=== PATIENT | female | born 1965 | race Two or more races ===

== ENCOUNTER 2024-11-02 09:01 | Outpatient (AMB) | payer OTHER, SELFPAY ==
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
[2024-11-02 09:19] VITALS: BMI 33.9
== END 2024-11-02 09:34 | disposition home or self-care (01) ==
PROVIDERS: PCP Physician Assistant; Visit Provider Orthopaedic Surgery
DX: M25.512 Pain in left shoulder (principal)
CPT/HCPCS: 99213; G2211

== ENCOUNTER 2024-11-02 14:53 | Outpatient (REF) | payer OTHER, SELFPAY ==
--- NOTE | ~2024-11-02 | XR_ITS ---
EXAMINATION: XR LEFT SHOULDER CLINICAL INFORMATION: Pain in left shoulder M25.512. COMPARISON: None available TECHNIQUE: AP and scapular Y views of the left shoulder. FINDINGS: Postsurgical changes with rotator cuff repair anchors positioned within the humeral head. The more posterior and superior screw projects beyond the cortex of the superolateral humeral head. Correlate with the surgical result. Mild acromioclavicular and glenohumeral osteoarthritis. XR/XR shoulder LT min 2V IMPRESSION: 1. Mild acromioclavicular and glenohumeral osteoarthritis. 2. Postsurgical changes with the more posterior and superior screw projecting beyond the cortex of the superolateral humeral head. Electronically signed by: Óscar Bonner MD 12/09/2024 10:23 AM TAMI IBARRA
== END 2024-11-02 14:54 | disposition home or self-care (01) ==
LOC: HO.HOSX 14:53
PROVIDERS: Visit Provider Orthopaedic Surgery
DX: M25.512 Pain in left shoulder (principal)
CPT/HCPCS: 73030

== ENCOUNTER 2024-11-22 07:23 | Outpatient (REF) | payer OTHER, SELFPAY ==
--- NOTE | ~2024-11-22 | CT_ITS ---
CLINICAL HISTORY: M25.512 - Pain in left shoulder Examination: Noncontrast CT, left shoulder Indication: Pain. Comparison: Radiographs 11/02/2024 Findings: Postsurgical changes noted along the left humeral head. The cephalad most screw is not flush with the humeral head and protrudes approximately 6 mm. No immediate postsurgical CT is present. No fracture or acute malalignment. Mild joint space narrowing at the glenohumeral and acromioclavicular joints. No fluid collection or suspicious soft tissue abnormality. The visualized left lung is clear. Impression: One of the surgical anchors is noted to protrude approximately 6 mm from the humeral head surface with mild surrounding lucency. Correlation for loosening and/or partial withdrawal. This document has been electronically signed by: Vincent Brink MD on 11/22/2024 11:47:34
== END 2024-11-22 07:24 | disposition home or self-care (01) ==
LOC: HO.CT 07:23
PROVIDERS: PCP Physician Assistant; Visit Provider Orthopaedic Surgery
DX: M25.512 Pain in left shoulder (principal)
CPT/HCPCS: 73200

== ENCOUNTER → 2024-11-22 07:24 | Outpatient (BNV) | payer OTHER, SELFPAY | PROVIDERS: PCP Physician Assistant; Visit Provider Radiology Vascular & Interventional Radiology | DX: T84.84XA Pain due to internal orthopedic prosthetic devices, implants and grafts, initial encounter (principal) | CPT/HCPCS: 73200 ==

== ENCOUNTER 2024-12-20 13:03 | Outpatient (AMB) | payer OTHER, SELFPAY ==
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
[2024-12-20 13:08] VITALS: BMI 33.9
--- OUTSIDE RECORDS SUMMARY | 2024-12-20 17:41 | XMS_ITS | Encounter Summary ---
Author Organization [facility] Address [address] [place] [address] Care Team Providers Care Windows Systems Engineer Name Role Phone Shital Beck Primary Care Provider + Reason for Visit * Reason Onset Date Comments Med Refill 11/03/2024 [email or web address] Encounter Details Date Type Department Care Team (Late st Contact Info) Description 11/03/2024 Telephone Bariatric Surgery - [place] [address] [facility] [address] [place] [phone] Mark Schroeder MD [address] [facility] [address] [place] [address] Med Refill (wegovy) Social History Tobacco Use Types Packs/Day Years Used Date Smoking Tobacco: Never Smokeless Tobacco: Never Alcohol Use Standard Drinks/Week Comments No 0 (1 standard drink = 0.6 oz pur e alcohol) Sex and Gender Information Value Date Recorded Sex Assigned at Female 12/08/2024 9:05 AM EST Gender Identity Female 12/08/2024 9:05 AM EST Sexual Orientation Straight 12/08/2024 9: 05 AM EST Job Start Date Occupation Industry Not on file Not on file Not on file documented as of this encounter Progress Notes * Elsy Sultana - 11/03/2024 11:57 AM EST Patient did well on Wegovy 1 mgs and would like a refill with titration. If appropriate, please send script for Wegovy 1.7 mgs to their pharmacy. The patient does have a follow up in 12/28/2024 documented in this encounter Plan of Treatment Upcoming Encounters Date Type Department Care Team (Late st Contact Info) Description 12/28/2024 1:00 PM EST Office Visit Bariatric Surgery - [place] [address] [facility] [address] [place] [address] Mark Schroeder MD 175 [facility] [address] [place] [address] 06/10/2025 9:00 AM EDT Office Visit Internal Medicine - [place] 175 [facility] [address] [place] [phone] Shital Beck PA 175 [facility] [address] [place] [address] documented as of this encounter Visit Diagnoses Not on filedocumented in this encounter Care Teams Windows Systems Engineer Relationship Specialty Start Date End Date Shital Beck PA [address] [facility] [address] [place] [address] PCP - General Primary Care 10/01/24 documented as of this encounter
--- OUTSIDE RECORDS SUMMARY | 2024-12-20 17:41 | XMS_ITS | Encounter Summary ---
Author Organization [facility] Address [address] [place] [address] Care Team Providers Care Pararescue Manager Name Role Phone Shital Beck Primary Care Provider + Reason for Visit * Reason Comments Cough Body aches, LNI posit harris covid Encounter Details Date Type Department Care Team (Late st Contact Info) Description 11/27/2024 11:30 AM EST Office Visit [facility] - [place] [address] [place] [phone] Natanael Henry PA [address] [place], [place] [phone] COVID (Primary Dx) Social History Tobacco Use Types Packs/Day Years [...] on file documented as of this encounter Last Filed Vital Signs Vital Sign Reading Time Taken Comments Blood Pressure 118/70 11/27/2024 11:24 AM EST Pulse 88 11/27/2024 11:24 AM EST Temperature 36.7 ??C (98.1 ??F) 11/27/2024 11:[address] Respiratory Rate - - Oxygen Saturation 99% 11/27/2024 11:24 AM EST Inhaled Oxygen Concentration - - Weight - - Height - - Body Mass Index - - documented in this encounter Ordered Prescriptions Prescription Sig Dispensed Refills Start Date End Da te benzonatate (TESSALON) 100 mg capsuleIndications:CO VID Take 1 capsule (100 mg total) by mouth 3 (three) times a day if needed for cough for up to 7 days. Do not crush or chew. 21 capsule 11/27/2024 12/04/2024 nirmatrelvir-ritonavi r (Paxlovid) 300 mg (150 mg x 2)-100 mg tablet therapy packIndications:COVID Take 3 tablets by mouth every 12 (twelve) hours for 5 days. Take number of ordered nirmatrelvir (300 mg = 2 tablets) and ritonavir (100 mg = 1 tablet) tablets at the same time. 30 tablet 11/27/2024 12/02/2024 documented in this encounter Progress Notes * CHERELLE Terrell - 11/27/2024 11:30 AM EST CHIEF COMPLAINT: Cough (Body aches, LIN positive covid) had concerns including Cough (Body aches, LIN positive covid). IDENTIFIER: Sol Anand is a 59 y.o. old female. [facility] HPI: Sol Anand presents to urgent care for evaluation of COVID-19 positive home test. Patient feeling unwell for a few days. Body aches, headache.. PHYSICAL EXAM: Vitals: 11/27/24 1124 BP: 118/70 Pulse: 88 Temp: 36.7 ??C (98.1 ??F) SpO2: 99% APPEARANCE: Alert and in no acute distress HEENT: EOMs full and intact, PERRLA, conjunctivae and sclerae normal, nasal exam showed no discharge, swelling or lesions noted, hearing was normal bilaterally to whispered voice, clear aduitory canals, tympanic membranes pearly with no bulging, teeth intact, non-carious and tongue midline and normal. Oropharynx, pink, moist. Tonsils not enlarged with no exudate NECK:Neck supple, no adenopathy, thyroid symmetric and of normal size CARDIOVASCULAR:regular rate and rhythm without murmurs PULMONARY:unlabored respirations, no intercostal retractions or accessory muscle use and clear to auscultation without rales or wheezes Some No images are attached to the encounter. ROS: Review of Systems Constitutional: Positive for fatigue. HENT: Positive for congestion. Neurological: Positive for headaches. PROBLEMS: Sol was seen today for cough. Diagnoses and all orders for this visit: 1. COVID - Paxlovid; Take 3 tablets by mouth every 12 (twelve) hours for 5 days. Take number of ordered nirmatrelvir (300 mg = 2 tablets) and ritonavir (100 mg = 1 tablet) tablets at the same time. - benzonatate; Take 1 capsule (100 mg total) by mouth 3 (three) times a day if needed for cough forup to 7 days. Do not crush or chew. Will place on Paxlovid. Patient instructed how to take the medication. Also Tessalon Perles as needed for cough symptoms. Patient aware of general guidelines for isolation and CDC guidelines regarding COVID No orders of the defined types were placed in this encounter. PAST MEDICAL HISTORY: Patient Active Problem List Diagnosis Date Noted DM type 2 (diabetes mellitus, type 2) ([facility]) 09/03/2024 Rheumatoid factor positive 09/03/2024 Class 1 obesity due to excess calories with body mass index (BMI) of 33.0 to 33.9 in adult 09/03/2024 Rheumatoid arthritis ([facility]) 04/22/2023 Undifferentiated inflammatory arthritis ([facility]) 09/07/2020 Over weight 10/18/2019 Left knee pain 07/29/2019 Intestinal malabsorption following gastrectomy 04/08/2019 Varicose veins with pain 12/28/2018 Allergic rhinitis 08/13/2018 Asthma 08/13/2018 Hypertension 07/24/2018 Hyperlipidemia 04/24/2018 Vitamin D deficiency 04/24/2018 Gastroesophageal reflux disease 06/16/2017 Obstructive sleep apnea 04/08/2017 Depression 02/06/2015 Irritable bowel syndrome 10/04/2014 Carpal tunnel syndrome 10/05/2013 Cervical radiculopathy 03/26/2013 Anxiety 06/19/2011 Past Surgical History: Procedure Laterality Date APPENDECTOMY 2001 PROCEDURE: HISTORICAL APPENDECTOMY BARIATRIC SURGERY 12/2018 PROCEDURE: IL LAPS GSTRC RSTRICTIV PX LONGITUDINAL GASTRECTOMY BREAST LUMPECTOMY PROCEDURE: ---- BREAST LUMP BIOPSY ----; COMMENT: cyst removed SECTION PROCEDURE: IL DELIVERY ONLY; COMMENT: times 4 HERNIA REPAIR 2001 PROCEDURE: HISTORICAL HERNIA REPAIR/ING HYSTERECTOMY 2003 PROCEDURE: HISTORICAL HYSTERECTOMY; COMMENT: Supracervical, needs paps LEG SURGERY Left 11/22/2015 PROCEDURE: HISTORICAL LEG SURGERY; COMMENT: varicose vein ablation/microphlebectomies OTHER SURGICAL HISTORY PROCEDURE: IL LIG/TRNSXJ FLP TUBE ABDL/VAG APPR UNI/BI OTHER SURGICAL HISTORY 12/25/2018 PROCEDURE: HISTORY OTHER; COMMENT: gastrectomy SHOULDER ARTHROSCOPY Left 2013 PROCEDURE: IL SURGICAL ARTHROSCOPY SHOULDER W/LSS&RESCJ ADS SOCIAL HISTORY: Social History Tobacco Use Smoking status: Never Smokeless tobacco: Never Substance Use Topics Alcohol use: No FAMILY HISTORY: Family History Problem Relation Name Age of Onset Hypertension Mother Diabetes Mother Dementia Mother Other (Other: Other, old age) Father 99.00 No Known Problems Daughter MEDICATIONS DISCONTINUED/REORDERED: There are no discontinued medications. ACTIVE MEDICATIONS: No outpatient medications have been marked as taking for the 11/27/24 encounter (Office Visit) with CHERELLE Terrell. ALLERGIES: Allergies Allergen Reactions Lisinopril Other reaction(s): Cough The details of the visit were reviewed with the patient. Pertinent history, and objective findings were reviewed, along with the diagnoses: Sol Anand acknowledges understanding of the above plan and agrees to follow recommendations and/or take medications as prescribed. This visit was performed at an urgent care facility. The patient should follow up with their PCP orthe relevant specialist(s) CHERELLE Terrell documented in this encounter Plan of Treatment Upcoming Encounters Date Type Department Care Team (Late st Contact Info) Description 12/28/2024 1:00 PM EST Office Visit Bariatric Surgery - [place] 175 [facility] [address] [place] [phone] Mark Schroeder MD 175 [facility] [address] [place] [address] 06/10/2025 9:00 AM EDT Office Visit Internal Medicine - [place] 175 [facility] [address] [place] [phone] Shital Beck PA [address] [address] documented as of this encounter Visit Diagnoses Diagnosis COVID- Primary documented in this encounter Care Teams Pararescue Manager Relationship Specialty Start Date End Date Shital Beck PA [address] [address] PCP - General Primary Care 10/01/24 documented as of this encounter
--- OUTSIDE RECORDS SUMMARY | 2024-12-20 17:41 | XMS_ITS | Encounter Summary ---
Author Organization [facility] Address [address] [place] [address] Care Team Providers Care Recreational Director Name Role Phone Shital Beck Primary Care Provider + Reason for Visit * Reason Comments Abdominal Pain PT COMES IN WITH ABD PAIN, NAUSEA, VOMITING, HEADACHE SINCE LAST NIGHT. Encounter Details Date Type Department Care Team (Late st Contact Info) Description 12/08/2024 10:11 AM EST - 12/08/2024 1:13 PM EST Emergency [facility] Emergency [address] [place] [id number] Epigastric pain (Primary Dx); Nausea and vomiting, unspecified vomiting type Discharge Disposition: Home or Self Care Social History Tobacco Use Types Packs/Day Years [...] Sign Reading Time Taken Comments Blood Pressure 122/62 12/08/2024 1:04 PM EST Pulse 85 12/08/2024 1:04 PM EST Temperature 37 ??C (98.6 ??F) 12/08/2024 7:10 AM EST Respiratory Rate 16 12/08/2024 1:04 PM EST Oxygen Saturation 100% 12/08/2024 1:04 PM EST Inhaled Oxygen Concentration - - Weight 77.1 kg (170 lb) 12/08/2024 7:10 AM EST Height 149.9 cm (4' 11 ) 12/08/2024 7:10 AM EST Body Mass Index 34.34 12/08/2024 7:10 AM EST documented in this encounter Discharge Instructions * Attachments The following attachments cannot be sent through Care Everywhere. * Nausea and Vomiting (Kiswahili) documented in this encounter Medications at Time of Discharge Medication Sig Dispensed Refills Start Date End Date famotidine (PEPCID) 20 mg tablet Take 1 tablet (20 mg total) by mouth 2 (two) times a day for 15 days. 30 tablet 12/08/2024 12/23/2024 adalimumab (HUMIRA PEN SUBQ) Inject 40 mg into the skin every 14 days. albuterol 2.5 mg /3 mL (0.083 %) nebulizer solution Take 1 Vial by nebulization every 6 hours as needed for Wheezing for up to 180 days. 09/22/2023 albuterol HFA (PROAIR HFA ; PROVENTIL HFA ; VENTOLIN HFA) 90 mcg/actuation inhaler Inhale 2 Puffs into the lungs 4 times daily as needed for Cough or Wheezing. 01/23/2021 amitriptyline (ELAVIL) 50 mg tabletIndications:Heada nasreen, unspecified TAKE 1 TABLET BY MOUTH EVERYDAY AT BEDTIME 90 tablet 3 11/02/2024 blood sugar diagnostic (FreeStyle Lite Strips) test strip USE TO CHECK BLOOD SUGARS 2-3 TIMES DAILY. E11.9 10/07/2023 blood-glucose meter misc Use to test blood sugars 2-3 times daily. DX E11.9 08/06/2024 cetirizine (ZyrTEC) 10 mg tablet Take 1 Tablet by mouth daily as needed for Allergies. 12/08/2023 cholecalciferol (VITAMIN D-3) 50 mcg (2,000 unit) capsule Take 1 capsule (2,000 Units total) by mouth 1 (one) time each day. 03/13/2022 diclofenac (VOLTAREN) 1 % topical gel APPLY 4 G TOPICALLY 4 TIMES DAILY NEEDED (RIGHT KNEE PAIN). 12/02/2022 ergocalciferol (VITAMIN D-2) 1,250 mcg (50,000 unit) capsule Take 1 Capsule by mouth once a week for 8 doses. 01/28/2023 fluticasone propionate (FLONASE) 50 mcg/actuation nasal spray Administer 2 sprays into each nostril 1 (one) time each day. 03/11/2024 folic acid (FOLVITE) 1 mg tablet Take 1 tablet (1,000 mcg total) by mouth 1 (one) time each day. hydroxychloroquine (PLAQUENIL) 200 mg tablet Take 1 tablet (200 mg total) by mouth 2 (two) times a day. 08/02/2021 ibuprofen (ADVIL,MOTRIN) 800 mg tablet Take 1 tablet (800 mg total) by mouth every 8 (eight) hours if needed. 12/02/2022 magnesium 250 mg tablet TAKE 1 TABLET BY MOUTH EVERY DAY 12/13/2023 methotrexate 2.5 mg tablet Take 7 Tablets by mouth once a week. 10/22/2022 methotrexate, PF, 17.5 mg/0.35 mL auto-injector Inject 17.5 mg into the skin once a week. 04/22/2023 multivitamin with minerals tablet TAKE 1 TABLET BY MOUTH EVERY DAY 11/13/2023 omeprazole OTC (PriLOSEC OTC) 20 mg EC tablet Take 1 tablet (20 mg total) by mouth 1 (one) time each day. 02/03/2024 topiramate (TOPAMAX) 100 mg tablet Take 1 tablet (100 mg total) by mouth 1 (one) time each day. 02/03/2024 ondansetron ODT (ZOFRAN-ODT) 4 mg disintegrating tablet Let 1 tablet dissolve under the tongue three times daily as needed for nausea or vomiting. 10 tablet 12/08/2024 12/10/2024 documented as of this encounter Ordered Prescriptions Prescription Sig Dispensed Refills Start Date End Da te famotidine (PEPCID) 20 mg tablet Take 1 tablet (20 mg total) by mouth 2 (two) times a day for 15 days. 30 tablet 12/08/2024 12/23/2024 ondansetron ODT (ZOFRAN-ODT) 4 mg disintegrating tablet Let 1 tablet dissolve under the tongue three times daily as needed for nausea or vomiting. 10 tablet 12/08/2024 12/10/2024 famotidine (PEPCID) 20 mg tablet Take 1 tablet (20 mg total) by mouth 2 (two) times a day for 15 days. 30 tablet 12/08/2024 12/08/2024 ondansetron ODT (ZOFRAN-ODT) 4 mg disintegrating tablet Let 1 tablet dissolve under the tongue three times daily as needed for nausea or vomiting. 10 tablet 12/08/2024 12/08/2024 documented in this encounter Discharge Disposition Disposition Code Departure Means Destination Comment s Home or Self Care documented in this encounter Progress Notes * Orlin Love MD - 12/08/2024 8:48 AM EST Patient is presenting with epigastric abdominal pain for 1 day, nausea vomiting times as well. No diarrhea, feels a headache Patient will require further workup in the emergency department. I have spoken with the patient and explained that we strive to provide safe and effective care in the emergency department. During their visit they may experience extended wait times. I have discussed that out of concern for their safety, if the patient needs to leave for any reason to please let staff know immediately. * Georgia Mcdaniel RN - 12/08/2024 7:16 AM EST Pt also reports burning in the chest after vomiting. EKG ordered * CHERELLE Ceballos - 12/08/2024 7:07 AM EST Emergency Medicine Note Patient Name: Sol Anand Initial Evaluation: 12/08/2024 : 1965 Patient's PCP: CHERELLE Taveras Emergency Physician: CHERELLE Donnelly History of Present Illness Chief Complaint: Chief Complaint Patient presents with ??? Abdominal Pain PT COMES IN WITH ABD PAIN, NAUSEA, VOMITING, HEADACHE SINCE LAST NIGHT. HPI: 59-year-old female here today with upper abdominal pain and epigastric discomfort. States he is nauseous vomiting started at 5:00 last night. Denies any fevers or any chills. Gradual onset of symptoms. Denies any chest pain or respiratory distress. ROS: I have performed a ROS with the pertinent positives and negatives documented in the history ofpresent illness. Previous History Past Medical History: Diagnosis Date ??? Allergic rhinitis 08/13/2018 DX:Allergic rhinitis ??? Anxiety 06/19/2011 DX:Anxiety ??? Asthma 08/13/2018 DX:Asthma ??? Carpal tunnel syndrome 10/05/2013 DX:Carpal tunnel syndrome ??? Cervical radiculopathy 03/26/2013 DX:Cervical radiculopathy ??? Depression 02/06/2015 DX:Depression ??? DM type 2 (diabetes mellitus, type 2) ([facility]) DX:DM type 2 (diabetes mellitus, type 2) ([facility]); COMMENT: 12/2018 No diabetes medication since bariatric surgery ??? Gastroesophageal reflux disease 06/16/2017 DX:Gastroesophageal reflux disease; COMMENT: 2011 h/o H.Pylori ??? History of bariatric surgery 01/14/2019 DX:History of bariatric surgery; COMMENT: 12/2018 lap vertical sleeve ??? Hyperlipidemia 04/24/2018 DX:Hyperlipidemia ??? Hypertension 07/24/2018 DX:Hypertension ??? Irritable bowel syndrome 10/04/2014 DX:Irritable bowel syndrome ??? Morbid obesity with BMI of 40.0-44.9, adult ([facility]) 10/04/2014 DX:Morbid obesity with BMI of 40.0-44.9, adult ([facility]); COMMENT: 12/2018 post sleeve gastrectomy ??? Obstructive sleep apnea 04/08/2017 DX:Obstructive sleep apnea ??? Rheumatoid arthritis ([facility]) DX:Rheumatoid arthritis ([facility]) ??? Rheumatoid factor positive DX:Rheumatoid factor positive; COMMENT: Rh factor = 1160 on 07/19/20 ??? 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 Vitamin D deficiency 04/24/2018 DX:Vitamin D deficiency Past Surgical History: Procedure Laterality Date ??? APPENDECTOMY 2001 PROCEDURE: HISTORICAL APPENDECTOMY ??? BARIATRIC SURGERY 12/2018 PROCEDURE: CO LAPS GSTRC RSTRICTIV PX LONGITUDINAL GASTRECTOMY ??? BREAST LUMPECTOMY PROCEDURE: ---- BREAST LUMP BIOPSY ----; COMMENT: cyst removed ??? SECTION PROCEDURE: CO DELIVERY ONLY; COMMENT: times 4 ??? HERNIA REPAIR 2001 PROCEDURE: HISTORICAL HERNIA REPAIR/ING ??? HYSTERECTOMY 2003 PROCEDURE: HISTORICAL HYSTERECTOMY; COMMENT: Supracervical, needs paps ??? LEG SURGERY Left 11/22/2015 PROCEDURE: HISTORICAL LEG SURGERY; COMMENT: varicose vein ablation/microphlebectomies ??? OTHER SURGICAL HISTORY PROCEDURE: CO LIG/TRNSXJ FLP TUBE ABDL/VAG APPR UNI/BI ??? OTHER SURGICAL HISTORY 12/25/2018 PROCEDURE: HISTORY OTHER; COMMENT: gastrectomy ??? SHOULDER ARTHROSCOPY Left 2013 PROCEDURE: CO SURGICAL ARTHROSCOPY SHOULDER W/LSS&RESCJ ADS Social History Tobacco Use ??? Smoking status: Never ??? Smokeless tobacco: Never Substance Use Topics ??? Alcohol use: No ??? Drug use: No Family History Problem Relation Name Age of Onset ??? Hypertension Mother ??? Diabetes Mother ??? Dementia Mother ??? Other (Other: Other, old age) Father 99.00 ??? No Known Problems Daughter is allergic to lisinopril. No current facility-administered medications on file prior to encounter. Current Outpatient Medications on File Prior to Encounter Medication Sig Dispense Refill ??? adalimumab (HUMIRA PEN SUBQ) Inject 40 mg into the skin every 14 days. ??? albuterol 2.5 mg /3 mL (0.083 %) nebulizer solution Take 1 Vial by nebulization every 6 hours as needed for Wheezing for up to 180 days. ??? albuterol HFA (PROAIR HFA ; PROVENTIL HFA ; VENTOLIN HFA) 90 mcg/actuation inhaler Inhale 2 Puffs into the lungs 4 times daily as needed for Cough or Wheezing. ??? amitriptyline (ELAVIL) 50 mg tablet TAKE 1 TABLET BY MOUTH EVERYDAY AT BEDTIME 90 tablet 3 ??? [] benzonatate (TESSALON) 100 mg capsule Take 1 capsule (100 mg total) by mouth 3 (three) times a day if needed for cough for up to 7 days. Do not crush or chew. 21 capsule 0 ??? blood sugar diagnostic (FreeStyle Lite Strips) test strip USE TO CHECK BLOOD SUGARS 2-3 TIMES DAILY. E11.9 ??? blood-glucose meter misc Use to test blood sugars 2-3 times daily. DX E11.9 ??? cetirizine (ZyrTEC) 10 mg tablet Take 1 Tablet by mouth daily as needed for Allergies. ??? cholecalciferol (VITAMIN D-3) 50 mcg (2,000 unit) capsule Take 1 capsule (2,000 Units total) bymouth 1 (one) time each day. ??? diclofenac (VOLTAREN) 1 % topical gel APPLY 4 G TOPICALLY 4 TIMES DAILY NEEDED (RIGHT KNEE PAIN). ??? ergocalciferol (VITAMIN D-2) 1,250 mcg (50,000 unit) capsule Take 1 Capsule by mouth once a week for 8 doses. ??? fluticasone propionate (FLONASE) 50 mcg/actuation nasal spray Administer 2 sprays into each nostril 1 (one) time each day. ??? folic acid (FOLVITE) 1 mg tablet Take 1 tablet (1,000 mcg total) by mouth 1 (one) time each day. ??? hydroxychloroquine (PLAQUENIL) 200 mg tablet Take 1 tablet (200 mg total) by mouth 2 (two) times a day. ??? ibuprofen (ADVIL,MOTRIN) 800 mg tablet Take 1 tablet (800 mg total) by mouth every 8 (eight) hours if needed. ??? magnesium 250 mg tablet TAKE 1 TABLET BY MOUTH EVERY DAY ??? methotrexate 2.5 mg tablet Take 7 Tablets by mouth once a week. ??? methotrexate, PF, 17.5 mg/0.35 mL auto-injector Inject 17.5 mg into the skin once a week. ??? multivitamin with minerals tablet TAKE 1 TABLET BY MOUTH EVERY DAY ??? [] nirmatrelvir-ritonavir (Paxlovid) 300 mg (150 mg x 2)-100 mg tablet therapy pack Take3 tablets by mouth every 12 (twelve) hours for 5 days. Take number of ordered nirmatrelvir (300 mg = 2 tablets) and ritonavir (100 mg = 1 tablet) tablets at the same time. 30 tablet 0 ??? omeprazole OTC (PriLOSEC OTC) 20 mg EC tablet Take 1 tablet (20 mg total) by mouth 1 (one) timeeach day. ??? [] semaglutide (Wegovy) 1.7 mg/0.75 mL injection pen Inject 1.7 mg under the skin every 7 (seven) days for 28 days. 3 mL 0 ??? topiramate (TOPAMAX) 100 mg tablet Take 1 tablet (100 mg total) by mouth 1 (one) time each day. Physical Exam ED Triage Vitals [12/08/24 0710] Temp Heart Rate Resp BP 37 ??C (98.6 ??F) 103 18 (!) 160/86 SpO2 Temp Source Heart Rate Source Patient Position 98 % Oral Radial Sitting BP Location FiO2 (%) Right arm -- Physical Exam Vitals and nursing note reviewed. Constitutional: Appearance: She is well-developed. HENT: Head: Normocephalic. Eyes: Extraocular Movements: Extraocular movements intact. Pupils: Pupils are equal, round, and reactive to light. Cardiovascular: Rate and Rhythm: Normal rate and regular rhythm. Pulmonary: Effort: Pulmonary effort is normal. Breath sounds: Normal breath sounds. Abdominal: General: Abdomen is flat. Palpations: Abdomen is soft. Tenderness: There is abdominal tenderness. Skin: General: Skin is warm. Capillary Refill: Capillary refill takes less than 2 seconds. Neurological: General: No focal deficit present. Mental Status: She is alert and oriented to person, place, and time. Psychiatric: Mood and Affect: Mood normal. Behavior: Behavior normal. Results Labs Reviewed COMPREHENSIVE METABOLIC PANEL - Abnormal Result Value Sodium 135 Potassium 4.4 Chloride 98 CO2 30 Anion Gap 7 Glucose 188 (*) BUN 9 Creatinine 0.69 eGFR 100 BUN/Creatinine Ratio 13.0 Calcium 9.9 AST (SGOT) 24 ALT (SGPT) 23 Alkaline Phosphatase 111 Total Protein 8.3 (*) Albumin 3.8 Total Bilirubin 0.4 LIPASE - Normal Lipase 28 CBC AND DIFFERENTIAL Narrative: The following orders were created for panel order CBC and differential. Procedure Abnormality Status --------- ------ CBC auto differential[[id number]] Final result Please view results for these tests on the individual orders. CBC WITH AUTO DIFFERENTIAL WBC 6.7 RBC 4.20 Hemoglobin 12.9 Hematocrit 37.9 MCV 90.2 MCH 30.7 MCHC 34.0 RDW 11.9 Platelets 355 MPV 9.5 NRBC 0.0 NRBC Absolute 0.00 Neutrophils Relative 62.9 Lymphocytes Relative 29.4 Monocytes Relative 6.4 Eosinophils Relative 0.9 Basophils Relative 0.3 Immature Granulocytes Relative 0.1 Neutrophils Absolute 4.19 Lymphocytes Absolute 1.96 Monocytes Absolute 0.43 Eosinophils Absolute 0.06 Basophils Absolute 0.02 Immature Granulocytes Absolute 0.01 Abnormal Labs Reviewed COMPREHENSIVE METABOLIC PANEL - Abnormal; Notable for the following components: Result Value Glucose 188 (*) Total Protein 8.3 (*) All other components within normal limits US Abdomen Limited Final Result Impression: 1. Cholelithiasis. No evidence of acute cholecystitis or biliary obstruction. 2. [place] ([id number]) -------- FINAL REPORT -------- Dictated By: Karla Moore Dictated Date: 12/08/2024 11:56 ET Assigned Physician: Karla Moore Reviewed and Electronically Signed By: Karla Moore Signed Date: 12/08/2024 11:58 ET Workstation ID: [id number] Transcribed By: Self Edit Transcribed Date: 12/08/2024 11:56 ET I have discussed the incidental/abnormal imaging and/or lab abnormalities with the patient and haveinstructed them the need for further evaluation and workup with their primary care doctor. I have provided the patient with a paper copy of the abnormality. The laboratory results, imaging results and other diagnostic exam results were reviewed in the EMR. EKG Interpretation Critical Care Time None Differential Diagnosis GERD Gastritis Pancreatitis Viral syndrome Nausea vomiting Medical Decision Making Patient well-appearing. She is not dehydrated mucous membranes are moist. Given Zofran 4 mg p.o. along with Maalox and viscous lidocaine. Patient's labs and ultrasound are unremarkable discharge home Medications aluminum-magnesium hydroxide-simethicone (MAALOX) 200-200-20 mg/5 mL suspension 30 mL (has no administration in time range) lidocaine (XYLOCAINE) 2 % mouth solution 15 mL (has no administration in time range) ondansetron ODT (ZOFRAN-ODT) disintegrating tablet 4 mg (4 mg oral Given 12/08/24 1159) Clinical Impressions as of 12/08/24 1309 Epigastric pain Nausea and vomiting, unspecified vomiting type Amount and/or Complexity of Data Reviewed External Data Reviewed: Encounters reviewed in Chart Review. Details: Labs: ordered. Decision-making details documented in ED Course. Radiology: ordered. Decision-making details documented in ED Course. ECG/medicine tests: ordered. Decision-making details documented in ED Course. Procedures Procedures Diagnosis 1. Epigastric pain 2. Nausea and vomiting, unspecified vomiting type Disposition Discharge ED Prescriptions Medication Sig Dispense Start Date End Date Auth. Provider ondansetron ODT (ZOFRAN-ODT) 4 mg disintegrating tablet Let 1 tablet dissolve under the tongue three times daily as needed for nausea or vomiting. 10 tablet 12/08/2024 12/15/2024 CHERELLE Ceballos famotidine (PEPCID) 20 mg tablet Take 1 tablet (20 mg total) by mouth 2 (two) times a day for 15 days. 30 tablet 12/08/2024 12/23/2024 CHERELLE Ceballos Physician Attestation CHERELLE Ceballos 12/08/24 1113 CHERELEL Ceballos 12/08/24 1307 CHERELLE Ceballos 12/08/24 1357 CHERELLE Ceballos 12/12/24 0736 documented in this encounter Plan of Treatment Upcoming Encounters Date Type Department Care Team (Late st Contact Info) Description 12/28/2024 1:00 PM EST Office Visit Bariatric Surgery - [place] [address] [facility] [address] [place] [phone] Mark Schroeder MD [address] [facility] [address] [place] [address] 06/10/2025 9:00 AM EDT Office Visit Internal Medicine - [facility] [address] [facility] [address] [place] [phone] Shital Beck PA [address] [facility] [address] [place] [address] documented as of this encounter Procedures Procedure Name Priority Date/Time Associated Diagnosis Comments US ABDOMEN LIMITED STAT 12/08/2024 11 :52 AM EST ECG 12-LEAD STAT 12/08/2024 7:32 AM EST CBC WITH AUTO DIFFERENTIAL STAT 12/08/2024 7:27 AM EST CBC AND DIFFERENTIAL STAT 12/08/2024 7:27 AM EST LIPASE STAT 12/08/2024 7:27 AM EST COMPREHENSIVE METABOLIC PANEL STAT 12/08/2024 7:27 AM EST ECG ANNOTATED 12/08/2024 documented in this encounter Results * US Abdomen Limited (12/08/2024 11:52 AM EST) Anatomical Region Laterality Modality Body Ultrasound 12/08/2024 11:5 6 AM EST Impressions 12/08/2024 11:58 AM EST Impression: 1. Cholelithiasis. No evidence of acute cholecystitis or biliary obstruction. 2. Fatty liver. Telerylie VILLARREAL ([id number]) -------- FINAL REPORT -------- Dictated By: Karla Moore Dictated Date: 12/08/2024 11:56 ET Assigned Physician: Karla Moore Reviewed and Electronically Signed By: Karla Moore Signed Date: 12/08/2024 11:58 ET Workstation ID: [id number] Transcribed By: Self Edit Transcribed Date: 12/08/2024 11:56 ET Narrative 12/08/2024 11:58 AM EST History: Abdominal pain. Findings: Real-time imaging of the abdomen, limited to the right upper quadrant, was performed. The hepatic echogenicity is mildly increased, consistent with fatty infiltration. No masses are identified. The portal vein is patent and exhibits normal, hepatopedal flow. The gallbladder is physiologically distended and contains multiple small mobile calculi and sludge. The gallbladder wall is normal in thickness, measuring 2 mm. No pericholecystic fluid is seen. No sonographic Chavez's sign was found. The common duct is normal in caliber, measuring up to 4 mm in diameter. No ascites is seen in the right upper quadrant. A survey view of the right kidney is unremarkable. The pancreas is partially obscured by bowel gas shadowing; the visualized portions of the neck and head appear normal. Procedure Note Karla Moore MD - 12/08/2024 History: Abdominal pain. Findings: Real-time imaging of the abdomen, limited to the right upper quadrant, wasperformed. The hepatic echogenicity is mildly increased, consistent with fattyinfiltration. No masses are identified. The portal vein is patent andexhibits normal, hepatopedal flow. The gallbladder is physiologically distended and contains multiple smallmobile calculi and sludge. The gallbladder wall is normal in thickness,measuring 2 mm. No pericholecystic fluid is seen. No sonographic Chavez'ssign was found. The common duct is normal in caliber, measuring up to 4 mmin diameter. No ascites is seen in the right upper quadrant. A survey view of the rightkidney is unremarkable. The pancreas is partially obscured by bowel gas shadowing; the visualizedportions of the neck and head appear normal. IMPRESSION: Impression: 1. Cholelithiasis. No evidence of acute cholecystitis or biliaryobstruction. 2. Fatty liver. Magalie VILLARREAL ([id number]) -------- FINAL REPORT -------- Dictated By: Karla Moore Dictated Date: 12/08/2024 11:56 ET Assigned Physician: Karla Moore Reviewed and Electronically Signed By: Karla Moore Signed Date: 12/08/2024 11:58 ET Workstation ID: [id number] Transcribed By: Self Edit Transcribed Date: 12/08/2024 11:56 ET Georgie HERNANDEZ US PROCEDU RES * ECG 12 lead (12/08/2024 7:32 AM EST) Ventricular Rate ECG 90 BPM GEMUSE Atrial Rate 90 BPM GEMUSE P-R Interval 178 ms GEMUSE QRS Duration 82 ms GEMUSE Q-T Interval 388 ms GEMUSE QTc 474 ms GEMUSE P Wave [place] 39 degrees GEMUSE R [place] 10 degrees GEMUSE T [place] 19 degrees GEMUSE ECG Interpretation Normal sinus rhythm Nonspecific T wave abnormality Abnormal ECG When compared with ECG of 15-DEC-2018 09:13, Nonspecific T wave abnormality now noted Confirmed by CLARITA GARCIA ([id number]) on 12/09/2024 10:42:33 AM GEMUSE 12/08/2024 7:32 AM EST 12/09/2024 10:42 AM EST Nerissa VILLARREAL ECG ORDERABLES GEMUSE * CBC auto differential (12/08/2024 7:27 AM EST) WBC 6.7 4.8 - 10.8 K/mcL LAB HEMETOLOGY METHOD 12/08/2024 7:58 AM [facility] RBC 4.20 3.80 - 4.80 M/[facility] LAB HEMETOLOGY METHOD 12/08/2024 7:58 AM [facility] Hemoglobin 12.9 11.5 - 16.0 g/dL LAB HEMETOLOGY METHOD 12/08/2024 7:58 AM [facility] Hematocrit 37.9 35.0 - 47.0 % LAB HEMETOLOGY METHOD 12/08/2024 7:58 AM [facility] MCV 90.2 79.0 - 98.0 FL LAB HEMETOLOGY METHOD 12/08/2024 7:58 AM [facility] MCH 30.7 27.0 - 32.0 pcg LAB HEMETOLOGY METHOD 12/08/2024 7:58 AM [facility] MCHC 34.0 32.0 - 37.0 g/dL LAB HEMETOLOGY METHOD 12/08/2024 7:58 AM [facility] RDW 11.9 11.0 - 15.0 % LAB HEMETOLOGY METHOD 12/08/2024 7:58 AM [facility] Platelets 355 130 - 400 K/mcL LAB HEMETOLOGY METHOD 12/08/2024 7:58 AM [facility] MPV 9.5 7.0 - 11.0 FL LAB HEMETOLOGY METHOD 12/08/2024 7:58 AM [facility] NRBC 0.0 <1.0 % LAB HEMETOLOGY METHOD 12/08/2024 7:58 AM [facility] NRBC Absolute 0.00 <0.10 K/mcL LAB HEMETOLOGY METHOD 12/08/2024 7:58 AM [facility] Neutrophils Relative 62.9 % LAB HEMETOLOGY METHOD 12/08/2024 7:58 AM [facility] Lymphocytes Relative 29.4 % LAB HEMETOLOGY METHOD 12/08/2024 7:58 AM [facility] Monocytes Relative 6.4 % LAB HEMETOLOGY METHOD 12/08/2024 7:58 AM [facility] Eosinophils Relative 0.9 % LAB HEMETOLOGY METHOD 12/08/2024 7:58 AM [facility] Basophils Relative 0.3 % LAB HEMETOLOGY METHOD 12/08/2024 7:58 AM [facility] Immature Granulocytes Relative 0.1 % LAB HEMETOLOGY METHOD 12/08/2024 7:58 AM [facility] Neutrophils Absolute 4.19 1.50 - 7.00 K/mcL LAB HEMETOLOGY METHOD 12/08/2024 7:58 AM [facility] Lymphocytes Absolute 1.96 1.00 - 5.00 K/mcL LAB HEMETOLOGY METHOD 12/08/2024 7:58 AM [facility] Monocytes Absolute 0.43 0.20 - 1.00 K/mcL LAB HEMETOLOGY METHOD 12/08/2024 7:58 AM EST [facility] Eosinophils Absolute 0.06 0.00 - 0.50 K/mcL LAB HEMETOLOGY METHOD 12/08/2024 7:58 AM EST [facility] Basophils Absolute 0.02 0.00 - 0.20 K/[facility] LAB HEMETOLOGY METHOD 12/08/2024 7:58 AM [facility] Immature Granulocytes Absolute 0.01 0.00 - 0.03 K/[facility] HEMETOLOGY METHOD 12/08/2024 7:58 AM [facility] Blood Venous blood specimen / Unknown Venipuncture / Unknown 12/08/2024 7:27 AM EST 12/08/2024 7:53 AM EST Theo Anjel Lock LAB BLOOD ORDERABLE S Performing Organization Address City/[facility]/ZIP Co de Phone Number [facility] [address] [place] [address], [place] [phone] * Lipase (12/08/2024 7:27 AM EST) Lipase 28 13 - 75 unit/L LAB CHEMISTRY METHOD 12/08/2024 8:26 AM [facility] Blood Venous blood specimen / Unknown Venipuncture / Unknown 12/08/2024 7:27 AM EST 12/08/2024 7:53 AM EST Theo Anjel Lock LAB BLOOD ORDERABLE S [facility] [address] [place] [address], [place] [phone] * (ABNORMAL) Comprehensive metabolic panel (12/08/2024 7:27 AM EST) Sodium 135 133 - 145 mmol/L LAB CHEMISTRY METHOD 12/08/2024 8:26 AM [facility] Potassium 4.4 3.5 - 5.5 mmol/L LAB CHEMISTRY METHOD 12/08/2024 8:26 AM [facility] Chloride 98 96 - 110 mmol/L LAB CHEMISTRY METHOD 12/08/2024 8:26 AM [facility] CO2 30 21 - 32 mmol/L LAB CHEMISTRY METHOD 12/08/2024 8:26 AM [facility] Anion Gap 7 3 - 11 LAB CHEMISTRY METHOD 12/08/2024 8:26 AM [facility] Glucose 188(H) 70 - 100 mg/dL LAB CHEMISTRY METHOD 12/08/2024 8:26 AM [facility] BUN 9 5 - 25 mg/dL LAB CHEMISTRY METHOD 12/08/2024 8:26 AM [facility] Creatinine 0.69 0.50 - 1.10 mg/dL LAB CHEMISTRY METHOD 12/08/2024 8:26 AM [facility] eGFR 100 >=60 mL/min/1. 73m2 LAB CHEMISTRY METHOD 12/08/2024 8:26 AM [facility] Comment:Calculation based on the??Chronic Kidney Disease Epidemiology Collaboration (CKD-EPI) equation refit??without adjustment for race. BUN/Creatinine Ratio 13.0 LAB CHEMISTRY METHOD 12/08/2024 8:26 AM [facility] Calcium 9.9 8.5 - 10.5 mg/dL LAB CHEMISTRY METHOD 12/08/2024 8:26 AM [facility] AST (SGOT) 24 10 - 42 unit/L LAB CHEMISTRY METHOD 12/08/2024 8:26 AM [facility] ALT (SGPT) 23 10 - 60 unit/L LAB CHEMISTRY METHOD 12/08/2024 8:26 AM [facility] Alkaline Phosphatase 111 42 - 121 unit/L LAB CHEMISTRY METHOD 12/08/2024 8:26 AM [facility] Total Protein 8.3(H) 6.0 - 8.0 g/dL LAB CHEMISTRY METHOD 12/08/2024 8:26 AM EST [facility] Albumin 3.8 3.2 - 5.0 g/dL LAB CHEMISTRY METHOD 12/08/2024 8:26 AM EST [facility] Total Bilirubin 0.4 0.0 - 1.4 mg/dL LAB CHEMISTRY METHOD 12/08/2024 8:26 AM EST [facility] Blood Venous blood specimen / Unknown Venipuncture / Unknown 12/08/2024 7:27 AM EST 12/08/2024 7:53 AM EST Theo Lock DO LAB BLOOD ORDERABLE S [facility] [address] [place] [address], * ECG-Annotated (12/08/2024) Provider Onbase MD ECG ORDERABLES documented in this encounter Visit Diagnoses Diagnosis Epigastric pain- Primary Abdominal pain, epigastric Nausea and vomiting, unspecified vomiting type documented in this encounter Administered Medications Inactive Administered Medications - up to 3 most recent administrations Medication Order MAR Action Action Date Dose Rate Site aluminum-magnesium hydroxide-simethicone (MAALOX) 200-200-20 mg/5 mL suspension 30 mL 30 mL, oral, Once, On Fri12/08/24 at 1300, For 1 dose Given 12/08/2024 1:10 PM EST 30 mL lidocaine (XYLOCAINE) 2 % mouth solution 15 mL 15 mL, Mouth/Throat, Once, On Fri12/08/24 at 1300, For 1 dose Given 12/08/2024 1:10 PM EST 15 mL ondansetron ODT (ZOFRAN-ODT) disintegrating tablet 4 mg 4 mg, oral, Once, On Fri12/08/24 at 1128, For 1 dose Given 12/08/2024 11:59 AM EST 4 mg documented in this encounter Discontinued Medications Medication Sig Discontinue Reason Start Date End Da te ondansetron ODT (ZOFRAN-ODT) 4 mg disintegrating tablet Let 1 tablet dissolve under the tongue three times daily as needed for nausea or vomiting. 12/08/2024 12/08/2024 famotidine (PEPCID) 20 mg tablet Take 1 tablet (20 mg total) by mouth 2 (two) times a day for 15 days. 12/08/2024 12/08/2024 documented as of this encounter Active and Recently Administered Medications Times are shown in EST. Scheduled Medication Order 12/06/2024 12/07/2024 12/08/2024 aluminum-magnesium hydroxide-simethicone (MAALOX) 200-200-20 mg/5 mL suspension 30 mL (COMPLETED) 30 mL, oral, Once, On Fri12/08/24 at 1300, For 1 dose 1310 (Given - Provid er: Nerissa Gutierrez RN) lidocaine (XYLOCAINE) 2 % mouth solution 15 mL (COMPLETED) 15 mL, Mouth/Throat, Once, On Fri12/08/24 at 1300, For 1 dose 1310 (Given - Provid er: Nerissa Gutierrez RN) ondansetron ODT (ZOFRAN-ODT) disintegrating tablet 4 mg (COMPLETED) 4 mg, oral, Once, On Fri12/08/24 at 1128, For 1 dose 1159 (Given - Provid er: Umang Bass RN) documented in this encounter Care Teams Recreational Director Relationship Specialty Start Date End Date Shital Beck PA [address] [place] [address] PCP - General Primary Care 10/01/24 documented as of this encounter
--- OUTSIDE RECORDS SUMMARY | 2024-12-20 17:41 | XMS_ITS | Encounter Summary ---
Author Organization [facility] Address [address] [place] [address] Care Team Providers Care Pipe Fitter Welding Name Role Phone Shital Beck Primary Care Provider + Reason for Visit * Reason Comments Follow-up [facility] ER 12/08/2024 a bdominal pain, nausea, vomiting Encounter Details Date Type Department Care Team ([facility] st Contact Info) Description 12/09/2024 10:30 AM EST Office Visit Internal Medicine - [place] [address] [facility] [address] [place] [id number] Shital Beck PA 175 [facility] [address] [place] [address] Nausea and vomiting, unspecified vomiting type (Primary Dx); Epigastric abdominal pain Social History Tobacco Use Types Packs/Day Years [...] Sign Reading Time Taken Comments Blood Pressure 122/84 12/09/2024 10:21 AM EST Pulse 108 12/09/2024 10:19 AM EST Temperature 36.6 ??C (97.9 ??F) 12/09/2024 10:[address] Respiratory Rate - - Oxygen Saturation 96% 12/09/2024 10:19 AM EST Inhaled Oxygen Concentration - - Weight 74.8 kg (165 lb) 12/09/2024 10:19 AM EST Height - - Body Mass Index 33.33 12/08/2024 7:10 AM EST documented in this encounter Progress Notes * CHERELLE Taveras - 12/09/2024 10:30 AM EST CHIEF COMPLAINT: Follow-up ([facility] ER 12/08/2024 abdominal pain, nausea, vomiting) IDENTIFIER: Sol Anand is a 59 y.o. old female. HPI: ER follow-up. Patient was seen at [facility] ER yesterday with complaints of abdominal pain, nausea and vomiting. Labs and ultrasound were reported to be unremarkable. Labs (CMP, lipase, CBC with differential) reviewed and did reveal glucose 188, otherwise in acceptable range. Abdominal ultrasound revealed cholelithiasis, no evidence of acute cholecystitis or bili obstruction and fatty liver. She doeshave underlying GERD treated with omeprazole 20 mg daily and ER added famotidine 20 mg twice daily and zofran. Diabetes is treated with Wegovy 1.7 mg weekly, last hemoglobin A1c 6.1 on 12/04/2023. Also of note she did have COVID 11/27/2024 seen at her urgent care and treated with Paxlovid. Feels better today, thinks sx's were due to wegovy which was given 12/06/24. Wegovy dose was increased a few weeks ago and thinks going to reduce back to old dose 1 mg weekly. Will see bariatric surgeon on 12/28/24, will plan to reduce wegovy for next dose as still has 1 mg at home. Other providers: Emergency Registrar Fox Campo PA-C in [place] at [facility] (previously Dr. Gruber) - Orthopedic care center - left knee, right shoulder Bariatric surgeon Dr. Schroeder - sleeve gastrectomy 12/25/18 Vascular through [facility] - varicose veins Collection Systems [facility]er [facility] [employer] PRESS OPERATOR Dr. Ragsdale at [facility] CUSTOMER EXPERT Group Dentist Dr. Dunbar Chimney Mechanic Dr. Ruano Neurologist Dr. Rivera - headaches ROS: GENERAL: Negative for malaise, significant weight loss and fever RESPIRATORY: No cough, wheezing or shortness of breath CARDIOVASCULAR: No chest pain, leg swelling or palpitations SKIN: No lesions, rash or itching NEURO: No headaches or dizziness PAST MEDICAL HISTORY: Patient Active Problem List Diagnosis Date Noted DM type 2 (diabetes mellitus, type 2) ([facility]) 09/03/2024 Rheumatoid factor positive 09/03/2024 Class 1 obesity due to excess calories with body mass index (BMI) of 33.0 to 33.9 in adult 09/03/2024 Rheumatoid arthritis ([facility]) 04/22/2023 Undifferentiated inflammatory arthritis ([facility]) 09/07/2020 Over weight 10/18/2019 Left knee pain [...] PROCEDURE: HISTORICAL APPENDECTOMY BARIATRIC SURGERY 12/2018 PROCEDURE: MN LAPS GSTRC RSTRICTIV PX LONGITUDINAL GASTRECTOMY BREAST LUMPECTOMY PROCEDURE: ---- BREAST LUMP BIOPSY ----; COMMENT: cyst removed SECTION PROCEDURE: MN DELIVERY ONLY; COMMENT: times 4 HERNIA REPAIR 2001 PROCEDURE: HISTORICAL HERNIA REPAIR/ING HYSTERECTOMY 2003 PROCEDURE: HISTORICAL HYSTERECTOMY; COMMENT: Supracervical, needs paps LEG SURGERY Left 11/22/2015 PROCEDURE: HISTORICAL LEG SURGERY; COMMENT: varicose vein ablation/microphlebectomies OTHER SURGICAL HISTORY PROCEDURE: MN LIG/TRNSXJ FLP TUBE ABDL/VAG APPR UNI/BI OTHER SURGICAL HISTORY 12/25/2018 PROCEDURE: HISTORY OTHER; COMMENT: gastrectomy SHOULDER ARTHROSCOPY Left 2013 PROCEDURE: MN SURGICAL ARTHROSCOPY SHOULDER W/LSS&RESCJ ADS SOCIAL HISTORY: [...] have been marked as taking for the 12/09/24 encounter (Office Visit) with CHERELLE Taveras. ALLERGIES: Allergies Allergen Reactions Lisinopril Other reaction(s): Cough PHYSICAL EXAM: Visit Vitals BP 122/84 Pulse 108 Temp 36.6 ??C (97.9 ??F) (Temporal) Wt 74.8 kg (165 lb) SpO2 96% BMI 33.33 kg/m?? Smoking Status Never BSA 1.7 m?? APPEARANCE: Alert and in no acute distress EYES: Conjunctiva and sclera normal. HEART: RRR LUNG: clear to auscultation bilaterally ABDOMEN: Obese, soft, mild epigastric tenderness EXTREMITIES: No edema NEURO: Awake, alert and oriented x 3 SKIN: Skin color normal. Warm and dry. LABS: Admission on 12/08/2024, Discharged on 12/08/2024 Component Date Value Ref Range Status Sodium 12/08/2024 135 133 - 145 mmol/L Final Potassium 12/08/2024 4.4 3.5 - 5.5 mmol/L Final Chloride 12/08/2024 98 96 - 110 mmol/L Final CO2 12/08/2024 30 21 - 32 mmol/L Final Anion Gap 12/08/2024 7 3 - 11 Final Glucose 12/08/2024 188 (H) 70 - 100 mg/dL Final BUN 12/08/2024 9 5 - 25 mg/dL Final Creatinine 12/08/2024 0.69 0.50 - 1.10 mg/dL Final eGFR 12/08/2024 100 >=60 mL/min/1.73m2 Final Calculation based on the Chronic Kidney Disease Epidemiology Collaboration (CKD- EPI) equation refitwithout adjustment for race. BUN/Creatinine Ratio 12/08/2024 13.0 Final Calcium 12/08/2024 9.9 8.5 - 10.5 mg/dL Final AST (SGOT) 12/08/2024 24 10 - 42 unit/L Final ALT (SGPT) 12/08/2024 23 10 - 60 unit/L Final Alkaline Phosphatase 12/08/2024 111 42 - 121 unit/L Final Total Protein 12/08/2024 8.3 (H) 6.0 - 8.0 g/dL Final Albumin 12/08/2024 3.8 3.2 - 5.0 g/dL Final Total Bilirubin 12/08/2024 0.4 0.0 - 1.4 mg/dL Final Lipase 12/08/2024 28 13 - 75 unit/L Final WBC 12/08/2024 6.7 4.8 - 10.8 K/mcL Final RBC 12/08/2024 4.20 3.80 - 4.80 M/mcL Final Hemoglobin 12/08/2024 12.9 11.5 - 16.0 g/dL Final Hematocrit 12/08/2024 37.9 35.0 - 47.0 % Final MCV 12/08/2024 90.2 79.0 - 98.0 FL Final MCH 12/08/2024 30.7 27.0 - 32.0 pcg Final MCHC 12/08/2024 34.0 32.0 - 37.0 g/dL Final RDW 12/08/2024 11.9 11.0 - 15.0 % Final Platelets 12/08/2024 355 130 - 400 K/mcL Final MPV 12/08/2024 9.5 7.0 - 11.0 FL Final NRBC 12/08/2024 0.0 <1.0 % Final NRBC Absolute 12/08/2024 0.00 <0.10 K/mcL Final Neutrophils Relative 12/08/2024 62.9 % Final Lymphocytes Relative 12/08/2024 29.4 % Final Monocytes Relative 12/08/2024 6.4 % Final Eosinophils Relative 12/08/2024 0.9 % Final Basophils Relative 12/08/2024 0.3 % Final Immature Granulocytes Relative 12/08/2024 0.1 % Final Neutrophils Absolute 12/08/2024 4.19 1.50 - 7.00 K/mcL Final Lymphocytes Absolute 12/08/2024 1.96 1.00 - 5.00 K/mcL Final Monocytes Absolute 12/08/2024 0.43 0.20 - 1.00 K/mcL Final Eosinophils Absolute 12/08/2024 0.06 0.00 - 0.50 K/mcL Final Basophils Absolute 12/08/2024 0.02 0.00 - 0.20 K/mcL Final Immature Granulocytes Absolute 12/08/2024 0.01 0.00 - 0.03 K/mcL Final Ventricular Rate ECG 12/08/2024 90 BPM Final Atrial Rate 12/08/2024 90 BPM Final P-R Interval 12/08/2024 178 ms Final QRS Duration 12/08/2024 82 ms Final Q-T Interval 12/08/2024 388 ms Final QTc 12/08/2024 474 ms Final P Wave [place] 12/08/2024 39 degrees Final R [place] 12/08/2024 10 degrees Final T [place] 12/08/2024 19 degrees Final ECG Interpretation 12/08/2024 Final Value:Normal sinus rhythm Nonspecific T wave abnormality Abnormal ECG When compared with ECG of 15-DEC-2018 09:13, Nonspecific T wave abnormality now noted Confirmed by CLARITA GARCIA ([id number]) on 12/09/2024 10:42:33 AM Abstract on 09/03/2024 Component Date Value Ref Range Status Hepatitis C Screening 09/07/2020 abstracted Final Depression Screening 11/19/2023 abstracted Final Falls Risk Assessment 11/19/2023 abstracted Final Annual BMP Blood Test 04/03/2023 abstracted Final HM Pap smear 11/10/2006 no interpretation, abstracted Final HM Colonoscopy 12/12/2016 no interpretation, abstracted Final Diabetes: Annual Retina Eye Exam 11/26/2023 abstracted Final Urine Albumin Creatinine Ratio 10/28/2022 abstracted Final LDL/HDL Ratio 10/28/2022 3 4 Final Triglycerides 10/28/2022 95 150 mg/dL Final Cholesterol 10/28/2022 226 (A) 200 mg/dL Final HDL 10/28/2022 71 40 mg/dL Final LDL Cholesterol 10/28/2022 136 (A) 100 mg/dL Final Hemoglobin A1C 12/04/2023 6.1 6.5 % Final Medication and lab orders: No orders of the defined types were placed in this encounter. Other orders: None IMAGING: IMPRESSION: 1. Nausea and vomiting, unspecified vomiting type 2. Epigastric abdominal pain PLAN: Nausea and vomiting/epigastric abdominal pain, likely secondary to GLP-1. Reviewed [facility] ER report from 12/08/2024. She does feel better today and plans to reduce her Wegovy back to 1 mg weekly from 1.7 mg weekly at her next dose 12/13/2024. She will follow-up with bariatric surgeon 12/28/2024. Follow-up with me in 6 months for physical. Call sooner if needed. CHERELLE Taveras on 12/09/2024 at 11:06 AM EST documented in this encounter Plan of Treatment Upcoming Encounters Date Type Department Care Team (Late st Contact Info) Description 12/28/2024 1:00 PM EST Office Visit Bariatric Surgery - [place] [address] [phone] Mark Schroeder MD 175 [facility] [address] [place] [address] 06/10/2025 9:00 AM EDT Office Visit Internal Medicine - [place] 175 [facility] [address] [place] [address] Shital Beck PA [address] [address] documented as of this encounter Visit Diagnoses Diagnosis Nausea and vomiting, unspecified vomiting type- Primary Epigastric abdominal pain Abdominal pain, epigastric documented in this encounter Care Teams Pipe Fitter Welding Relationship Specialty Start Date End Date Shital Beck PA [address] [address] PCP - General Primary Care 10/01/24 documented as of this encounter
--- OUTSIDE RECORDS SUMMARY | 2024-12-20 17:41 | XMS_ITS | Clinical Summary ---
Author Organization [facility] Address [address] [place] [address] Phone Care Team Providers Care Hotel Concierge Name Role Phone Zheng Beck Primary Care Provider + Allergies Active Allergy Reactions Criticality Noted Date Comments Lisinopril 06/16/2017 Other reaction(s): Cough Medications Medication Sig Dispensed Refills Start Date End Date Status adalimumab (HUMIRA PEN SUBQ) Inject 40 mg into the skin every 14 days. Active blood-glucose meter misc Use to test blood sugars 2-3 times daily. DX E11.9 08/06/20 24 Active blood sugar diagnostic (FreeStyle Lite Strips) test strip USE TO CHECK BLOOD SUGARS 2-3 TIMES DAILY. E11.9 10/07/20 23 Active magnesium 250 mg tablet TAKE 1 TABLET BY MOUTH EVERY DAY 12/13/19 24 Active methotrexate, PF, 17.5 mg/0.35 mL auto-injector Inject 17.5 mg into the skin once a week. 04/22/20 23 Active multivitamin with minerals tablet TAKE 1 TABLET BY MOUTH EVERY DAY 11/13/20 23 Active albuterol HFA (PROAIR HFA ; PROVENTIL HFA ; VENTOLIN HFA) 90 mcg/actuation inhaler Inhale 2 Puffs into the lungs 4 times daily as needed for Cough or Wheezing. 01/24/20 21 Active albuterol 2.5 mg /3 mL (0.083 %) nebulizer solution Take 1 Vial by nebulization every 6 hours as needed for Wheezing for up to 180 days. 09/22/20 23 Active cetirizine (ZyrTEC) 10 mg tablet Take 1 Tablet by mouth daily as needed for Allergies. 12/08/19 24 Active cholecalciferol (VITAMIN D-3) 50 mcg (2,000 unit) capsule Take 1 capsule (2,000 Units total) by mouth 1 (one) time each day. 03/13/20 22 Active diclofenac (VOLTAREN) 1 % topical gel APPLY 4 G TOPICALLY 4 TIMES DAILY NEEDED (RIGHT KNEE PAIN). 12/02/19 23 Active ergocalciferol (VITAMIN D-2) 1,250 mcg (50,000 unit) capsule Take 1 Capsule by mouth once a week for 8 doses. 01/29/20 23 Active fluticasone propionate (FLONASE) 50 mcg/actuation nasal spray Administer 2 sprays into each nostril 1 (one) time each day. 03/11/20 24 Active folic acid (FOLVITE) 1 mg tablet Take 1 tablet (1,000 mcg total) by mouth 1 (one) time each day. Active hydroxychloroquine (PLAQUENIL) 200 mg tablet Take 1 tablet (200 mg total) by mouth 2 (two) times a day. 08/02/20 21 Active ibuprofen (ADVIL,MOTRIN) 800 mg tablet Take 1 tablet (800 mg total) by mouth every 8 (eight) hours if needed. 12/02/19 23 Active methotrexate 2.5 mg tablet Take 7 Tablets by mouth once a week. 10/22/20 22 Active omeprazole OTC (PriLOSEC OTC) 20 mg EC tablet Take 1 tablet (20 mg total) by mouth 1 (one) time each day. 02/03/20 24 Active topiramate (TOPAMAX) 100 mg tablet Take 1 tablet (100 mg total) by mouth 1 (one) time each day. 02/03/20 24 Active amitriptyline (ELAVIL) 50 mg tabletIndications: Headache, unspecified TAKE 1 TABLET BY MOUTH EVERYDAY AT BEDTIME 90 tablet 3 11/02/20 24 Active famotidine (PEPCID) 20 mg tablet Take 1 tablet (20 mg total) by mouth 2 (two) times a day for 15 days. 30 tablet 12/08/19 25 025 Active semaglutide (Wegovy) 1.7 mg/0.75 mL injection pen Inject 1.7 mg under the skin every 7 (seven) days for 28 days. 3 mL 11/05/20 24 025 nirmatrelvir-riton avir (Paxlovid) 300 mg (150 mg x 2)-100 mg tablet therapy packIndications:CO VID Take 3 tablets by mouth every 12 (twelve) hours for 5 days. Take number of ordered nirmatrelvir (300 mg = 2 tablets) and ritonavir (100 mg = 1 tablet) tablets at the same time. 30 tablet 11/27/19 25 025 benzonatate (TESSALON) 100 mg capsuleIndications :COVID Take 1 capsule (100 mg total) by mouth 3 (three) times a day if needed for cough for up to 7 days. Do not crush or chew. 21 capsule 11/27/19 25 025 ondansetron ODT (ZOFRAN-ODT) 4 mg disintegrating tablet Let 1 tablet dissolve under the tongue three times daily as needed for nausea or vomiting. 10 tablet 12/08/19 25 025 Discontinued famotidine (PEPCID) 20 mg tablet Take 1 tablet (20 mg total) by mouth 2 (two) times a day for 15 days. 30 tablet 12/08/19 25 025 Discontinued ondansetron ODT (ZOFRAN-ODT) 4 mg disintegrating tablet Let 1 tablet dissolve under the tongue three times daily as needed for nausea or vomiting. 10 tablet 12/08/19 25 025 Discontinued(Re order) ondansetron ODT (ZOFRAN-ODT) 4 mg disintegrating tablet Let 1 tablet dissolve under the tongue three times daily as needed for nausea or vomiting. 45 tablet 3 12/13/19 25 025 Active Problems Problem Noted Date Diagnosed Date DM type 2 (diabetes mellitus, type 2) 09/03/2024 Overview (09/03/2024): 12/2018 No diabetes medication since bariatric surgery Rheumatoid factor positive 09/03/2024 Overview (09/03/2024): Rh factor = 1160 on 07/19/20 Class 1 obesity due to exces s calories with body mass index (BMI) of 33.0 to 33.9 in adult 09/03/2024 Rheumatoid arthritis 04/22/2023 Undifferentiated inflammatory arthritis 09/07/20 20 Over weight 10/18/2019 Left knee pain 07/29/2019 Intestinal malabsorption following gastrectomy 0 04/08/2019 Varicose veins with pain 12/28/2018 Allergic rhinitis 08/13/2018 Asthma 08/13/2018 Hypertension 07/24/2018 Hyperlipidemia 04/24/2018 Vitamin D deficiency 04/24/2018 Gastroesophageal reflux disease 06/16/2017 Overview (09/03/2024): 2011 h/o H.Pylori Obstructive sleep apnea 04/08/2017 Depression 02/06/2015 Irritable bowel syndrome 10/04/2014 Carpal tunnel syndrome 10/05/2013 Cervical radiculopathy 03/26/2013 Anxiety 06/19/2011 Encounters Date Type Department Care Team Description 12/09/2024 10:30 AM EST Office Visit Internal Medicine - [place] [facility] [address] [place] [phone] Zheng Beck PA Nausea and vomiting, unspecified vomiting type (Primary Dx); Epigastric abdominal pain 12/08/2024 10:11 AM EST - 12/08/2024 1:13 PM EST Emergency [facility] Emergency [address] [place] [phone] Epigastric pain (Primary Dx); Nausea and vomiting, unspecified vomiting type Discharge Disposition: Home or Self Care 11/27/2024 11:30 AM EST Office Visit Walk-In Clinic - [place] [address] [place] [phone] Natanael Henry PA COVID (Primary Dx) 11/03/2024 Telephone Bariatric Surgery - [place] [facility] [address] [place] [phone] Mark Schroeder MD Med Refill ([email or web address]) 10/20/2024 2:38 PM EST - 10/20/2024 11:59 PM EST Hospital Encounter [facility] Xray [address] [place] [phone] Pain Discharge Disposition: Home or Self Care 10/20/2024 2:29 PM EST - 10/20/2024 11:59 PM EST Hospital Encounter [facility] Xray [address] [place] [address] Fracture Discharge Disposition: Home or Self Care from Last 3 Months Immunizations Name Administration Dates Next Due Influenza Quadravalent, MDCK , 0.5ml, preservative free (Flucelvax) 6mo and older 10/27/2020 Influenza trivalent, 0.5mL, preservative free (Fluarix; FluLaval; Fluzone) ages 6mo and older (Afluria) 3 years and older 10/05/2013 Pfizer SARS-CoV-2 COVID-19, mRNA, LNP-S, preservative free 09/16/2022,09/10/2021,01/30/2021,01/11 Pneumococcal polysaccharide 23 valent (Pneumovax 23) 2yo and older 02/13/2017 Surgical History Surgery Date Site/Laterality Comments SECTION PROCEDURE: [place] DELIVERY ONLY; COMMENT: times 4 OTHER SURGICAL HISTORY PROCEDURE: [place] LIG/TRNSXJ FLP TUBE ABDL/VAG APPR UNI/BI HYSTERECTOMY 2003 PROCEDURE: HISTORICAL HYSTERECTOMY; COMMENT: Supracervical, needs paps BREAST LUMPECTOMY PROCEDURE: ---- BREAST LUMP BIOPSY ----; COMMENT: cyst removed APPENDECTOMY 2001 PROCEDURE: HISTORICAL APPENDECTOMY HERNIA REPAIR 2001 PROCEDURE: HISTORICAL HERNIA REPAIR/ING SHOULDER ARTHROSCOPY 2013 Left PROCEDURE: [place] SURGICAL ARTHROSCOPY SHOULDER W/LSS&RESCJ ADS OTHER SURGICAL HISTORY 12/25/2018 PROCEDURE: HISTORY OTHER; COMMENT: gastrectomy LEG SURGERY 11/22/2015 Left PROCEDURE: HISTORICAL LEG SURGERY; COMMENT: varicose vein ablation/microphlebectomies BARIATRIC SURGERY 12/2018 PROCEDURE: [place] LAPS GSTRC RSTRICTIV PX LONGITUDINAL GASTRECTOMY Medical History Medical History Date Comments Allergic rhinitis 08/13/2018 DX:Allergic rh initis Anxiety 06/19/2011 DX:Anxiety Asthma 08/13/2018 DX:Asthma Carpal tunnel syndrome 10/05/2013 DX:Carpal tunnel syndrome Depression 02/06/2015 DX:Depression Gastroesophageal reflux disease 06/16/2017 DX:Gastroesophageal reflux disease; COMMENT: 2011 h/o H.Pylori Hyperlipidemia 04/24/2018 DX:Hyperlipidemi a Hypertension 07/24/2018 DX:Hypertension Irritable bowel syndrome 10/04/2014 DX:Irri table bowel syndrome Obstructive sleep apnea 04/08/2017 DX:Obstr uctive sleep apnea Vitamin D deficiency 04/24/2018 DX:Vitamin D deficiency Cervical radiculopathy 03/26/2013 DX:Cervic al radiculopathy DM type 2 (diabetes mellitus , type 2) ([facility]) DX:DM type 2 (diabetes melli tus, type 2) ([facility]); COMMENT: 12/2018 No diabetes medication since bariatric surgery History of bariatric surgery 01/14/2019 DX: History of bariatric surgery; COMMENT: 12/2018 lap vertical sleeve Morbid obesity with BMI of 4 0.0-44.9, adult ([facility]) 10/04/2014 DX:Morbid obesity with BMI o f 40.0-44.9, adult ([facility]); COMMENT: 12/2018 post sleeve gastrectomy Rheumatoid factor positive DX:Rh eumatoid factor positive; COMMENT: Rh factor = 1160 on 07/19/20 Undifferentiated inflammator y arthritis ([facility]) 09/07/2020 DX:Undifferentiated inflamma tory arthritis ([facility]) Rheumatoid arthritis ([facility]) D X:Rheumatoid arthritis ([facility]) Family History Medical History Relation Name Comments No Known Problems Daughter Other: Other, old age Father Dementia Mother Diabetes Mother Hypertension Mother Relation Name Status Comments Daughter Alive Father (Age 99) Mother (Age 88) Social History Tobacco Use Types Packs/Day Years [...] file Not on file Not on file Obstetrics History Last Filed Vital Signs Vital Sign Reading Time Taken Comments Blood Pressure 122/84 12/09/2024 10:21 AM EST Pulse 108 12/09/2024 10:19 AM EST Temperature 36.6 ??C (97.9 ??F) 12/09/2024 10:[address] Respiratory Rate 16 12/08/2024 1:04 PM EST Oxygen Saturation 96% 12/09/2024 10:19 AM EST Inhaled Oxygen Concentration - - Weight 74.8 kg (165 lb) 12/09/2024 10:19 AM EST Height 149.9 cm (4' 11 ) 12/08/2024 7:10 AM EST Body Mass Index 33.33 12/08/2024 7:10 AM EST Plan of Treatment Upcoming Encounters Date Type Department Care Team (Late st Contact Info) Description 12/28/2024 1:00 PM EST Office Visit Bariatric Surgery - [place] [facility] [address] [place] [phone] Mark Schroeder MD [facility] [address] [place] [address] 06/10/2025 9:00 AM EDT Office Visit Internal Medicine - [place] [facility] [address] [place] [phone] Zheng Beck PA [facility] [address] [place] [address] Health Maintenance Due Date Last Done Comments Diabetes: Annual Foot Exam 1975 DTaP,Tdap,and Td Vaccines (1 - Tdap) 1984 Hepatitis B Vaccines (1 of 3 - 19+ 3-dose series) 1984 Cervical Cancer Screening: Pap Smear 11/10/2009 11/10/2006 Pneumococcal Vaccine: Pediatrics (0 to 5 Years) and At-Risk Patients (6 to 64 Years) (2 of 2 - PCV) 02/13/2018 02/13/2017, 04/14/2013 HIV Screening 11/02/2022 Social Influencers of Health Screening 11/02/2022 Breast Cancer Screening 04/05/2023 04/05/2021, 06/23 Diabetes: Annual Urine Albumin-Creatinine Ratio (uACR) 10/28/2023 10/28/2022 Diabetes: Blood Sugar Control Test (HGBA1C) 06/03/2024 12/04/2023 COVID-19 Vaccine ( season) 2024 09/16/2022, 09/10/2021, 01/30/2021, Additional history exists Depression Screening 11/19/2024 11/19/2023 Diabetes: Annual Retina Eye Exam 11/26/2024 11/26/2023 Zoster Vaccines (2 of 2) 11/30/2024 10/05/2024 Diabetes: Annual GFR (Glomerular Filtration Rate) 12/08/2025 12/08/2024, 04/03/2023 Hypertension/CHF/CAD Annual BMP Blood Test 12/08/2025 12/08/2024, 04/03/2023 Colorectal Cancer Screening: Colonoscopy 12/12/2026 12/12/2016 Cholesterol Screening (Lipid Panel) 10/28/2027 10/28/2022 RSV Immunization Patients 60+ Years Old (1 - 1-dose 75+ series) 2040 Hepatitis C Screening Completed 09/07/2020 Influenza Vaccine Completed 09/06/2024, , 10/05/2013 HIB Vaccines Aged Out No longer eligi ble based on patient's age to complete this topic HPV Vaccines Aged Out No longer eligi ble based on patient's age to complete this topic Hepatitis A Vaccines Aged Out No long er eligible based on patient's age to complete this topic IPV Vaccines Aged Out No longer eligi ble based on patient's age to complete this topic MMR Vaccines Aged Out No longer eligi ble based on patient's age to complete this topic Meningococcal ACWY Vaccine Aged Out N o longer eligible based on patient's age to complete this topic RSV Immunization Patients Under 20 months Aged Out No longer eligible based on patient's age to complete this topic Varicella Vaccines Aged Out No longer eligible based on patient's age to complete this topic Procedures Procedure Name Priority Date/Time Associated Diagnosis Comments US ABDOMEN LIMITED STAT 12/08/2024 11 :52 AM EST ECG 12-LEAD STAT 12/08/2024 7:32 AM EST CBC WITH AUTO DIFFERENTIAL STAT 12/08/2024 7:27 AM EST LIPASE STAT 12/08/2024 7:27 AM EST COMPREHENSIVE METABOLIC PANEL STAT 12/08/2024 7:27 AM EST CBC AND DIFFERENTIAL STAT 12/08/2024 7:27 AM EST ECG ANNOTATED 12/08/2024 XR WRIST 3+ VIEWS LEFT Routine 2:45 PM EST Fracture XR HAND 3+ VIEWS LEFT Routine 10/20/2024 2:44 PM EST Pain HEMOGLOBIN A1C Routine 12/04/2023 DIABETES EYE EXAM Routine 11/26/2023 HM DEPRESSION SCREENING Routine 11/19/2023 HM URINE ALBUMIN CREATININE RATIO Routine 10/28/2022 LIPID PANEL Routine 10/28/2022 RACHELLE SCREENING DIGITAL Routine 04/05/2021 6:20 PM EDT Encounter for screening mammogram for malignant neoplasm of breast HEPATITIS C SCREENING Routine 09/07/2020 COLONOSCOPY Routine 12/12/2016 PAP SMEAR Routine 11/10/2006 from Last 3 Months or Most Recently Relevant to Health Maintenance Results * US Abdomen Limited (12/08/2024 11:52 AM EST) Anatomical Region Laterality Modality Body Ultrasound 12/08/2024 11:5 6 AM EST Impressions 12/08/2024 11:58 AM EST Impression: 1. Cholelithiasis. No evidence of acute cholecystitis or biliary obstruction. 2. Fatty liver. Telerad CHERELLE ([id number]) -------- FINAL REPORT -------- Dictated By: Karla Moore Dictated Date: 12/08/2024 11:56 ET Assigned Physician: Karla Moore Reviewed and Electronically Signed By: Karla Moore Signed Date: 12/08/2024 11:58 ET Workstation ID: [id number] Transcribed By: Self Edit Transcribed Date: 12/08/2024 [...] or biliaryobstruction. 2. Fatty liver. Magalie VILLARREAL ([id number]) -------- FINAL REPORT -------- Dictated By: Karla Moore Dictated Date: 12/08/2024 11:56 ET Assigned Physician: Karla Moore Reviewed and Electronically Signed By: Karla Moore Signed Date: 12/08/2024 11:58 ET Workstation ID: [id number] Transcribed By: Self Edit Transcribed Date: 12/08/2024 11:56 ET Georgie VILLARREAL IMG US PROCEDU RES * ECG 12 lead (12/08/2024 7:32 AM EST) Ventricular Rate ECG 90 BPM GEMUSE Atrial Rate 90 BPM GEMUSE P-R Interval 178 ms GEMUSE QRS Duration 82 ms GEMUSE Q-T Interval 388 ms GEMUSE QTc 474 ms GEMUSE P Wave [place] 39 degrees GEMUSE R [place] 10 degrees GEMUSE T [place] 19 degrees GEMUSE ECG Interpretation Normal sinus [...] LAB HEMETOLOGY METHOD 12/08/2024 7:58 AM EST [facility] RBC 4.20 3.80 - 4.80 M/mcL LAB HEMETOLOGY METHOD 12/08/2024 7:58 AM [facility] Hemoglobin 12.9 11.5 - 16.0 g/dL LAB HEMETOLOGY METHOD 12/08/2024 7:58 AM [facility] Hematocrit 37.9 35.0 - 47.0 % LAB HEMETOLOGY METHOD 12/08/2024 7:58 AM [facility] MCV 90.2 79.0 - 98.0 FL LAB HEMETOLOGY METHOD 12/08/2024 7:58 AM [facility] MCH 30.7 27.0 - 32.0 pcg LAB HEMETOLOGY METHOD 12/08/2024 7:58 AM [facility] MCHC 34.0 32.0 - 37.0 g/dL LAB HEMETOLOGY METHOD 12/08/2024 7:58 AM [facility] RDW 11.9 11.0 - 15.0 % LAB HEMETOLOGY METHOD 12/08/2024 7:58 AM [facility] Platelets 355 130 - 400 K/mcL LAB HEMETOLOGY METHOD 12/08/2024 7:58 AM [facility] MPV 9.5 7.0 - 11.0 FL LAB HEMETOLOGY METHOD 12/08/2024 7:58 AM [facility] NRBC 0.0 <1.0 % LAB HEMETOLOGY METHOD 12/08/2024 7:58 AM [facility] NRBC Absolute 0.00 <0.10 K/mcL LAB HEMETOLOGY METHOD 12/08/2024 7:58 AM [facility] Neutrophils Relative 62.9 % LAB HEMETOLOGY METHOD 12/08/2024 7:58 AM [facility] Lymphocytes Relative 29.4 % LAB HEMETOLOGY METHOD 12/08/2024 7:58 AM [facility] Monocytes Relative 6.4 % LAB HEMETOLOGY METHOD 12/08/2024 7:58 AM [facility] Eosinophils Relative 0.9 % LAB HEMETOLOGY METHOD 12/08/2024 7:58 AM [facility] Basophils Relative 0.3 % LAB HEMETOLOGY METHOD 12/08/2024 7:58 AM [facility] Immature Granulocytes Relative 0.1 % LAB HEMETOLOGY METHOD 12/08/2024 7:58 AM EST [facility] Neutrophils Absolute 4.19 1.50 - 7.00 K/mcL LAB HEMETOLOGY METHOD 12/08/2024 7:58 AM EST [facility] Lymphocytes Absolute 1.96 1.00 - 5.00 K/mcL LAB HEMETOLOGY METHOD 12/08/2024 7:58 AM EST [facility] Monocytes Absolute 0.43 0.20 - 1.00 K/mcL LAB HEMETOLOGY METHOD 12/08/2024 7:58 AM EST [facility] Eosinophils Absolute 0.06 0.00 - 0.50 K/[facility] LAB HEMETOLOGY METHOD 12/08/2024 7:58 AM EST [facility] Basophils Absolute 0.02 0.00 - 0.20 K/mcL LAB HEMETOLOGY METHOD 12/08/2024 7:58 AM EST [facility]) [facility] Immature Granulocytes Absolute 0.01 0.00 - 0.03 [facility] LAB HEMETOLOGY METHOD 12/08/2024 7:58 AM EST [facility] Blood Venous blood specimen / Unknown Venipuncture / Unknown 12/08/2024 7:27 AM EST 12/08/2024 7:53 AM EST Theo Lock DO LAB BLOOD ORDERABLE S [facility]) [facility] [address] [place] [address], * Lipase (12/08/2024 7:27 AM EST) Lipase 28 13 - 75 unit/L LAB CHEMISTRY METHOD 12/08/2024 8:26 AM EST [facility] Blood Venous blood specimen / Unknown Venipuncture / Unknown 12/08/2024 7:27 AM EST 12/08/2024 7:53 AM EST Theo Anjel Lock DO LAB BLOOD ORDERABLE S [facility] [address] [place] [address], * (ABNORMAL) Comprehensive metabolic panel (12/08/2024 7:27 AM EST) Sodium 135 133 - 145 mmol/L LAB CHEMISTRY METHOD 12/08/2024 8:26 AM [facility] Potassium 4.4 3.5 - 5.5 mmol/L LAB CHEMISTRY METHOD 12/08/2024 8:26 AM [facility] Chloride 98 96 - 110 mmol/L LAB CHEMISTRY METHOD 12/08/2024 8:26 AM [facility] CO2 30 21 - 32 mmol/L LAB CHEMISTRY METHOD 12/08/2024 8:26 AM [facility] Anion Gap 7 3 - 11 LAB CHEMISTRY METHOD 12/08/2024 8:26 AM [facility] Glucose 188(H) 70 - 100 mg/dL LAB CHEMISTRY METHOD 12/08/2024 8:26 AM [facility] BUN 9 5 - 25 mg/dL LAB CHEMISTRY METHOD 12/08/2024 8:26 AM [facility] Creatinine 0.69 0.50 - 1.10 mg/dL LAB CHEMISTRY METHOD 12/08/2024 8:26 AM [facility] eGFR 100 >=60 mL/min/1. 73m2 LAB CHEMISTRY METHOD 12/08/2024 8:26 AM [facility] Comment:Calculation based on the??Chronic Kidney Disease Epidemiology Collaboration (CKD-EPI) equation refit??without adjustment for race. BUN/Creatinine Ratio 13.0 LAB CHEMISTRY METHOD 12/08/2024 8:26 AM [facility] Calcium 9.9 8.5 - 10.5 mg/dL LAB CHEMISTRY METHOD 12/08/2024 8:26 AM [facility] AST (SGOT) 24 10 - 42 unit/L LAB CHEMISTRY METHOD 12/08/2024 8:26 AM [facility] ALT (SGPT) 23 10 - 60 unit/L LAB CHEMISTRY METHOD 12/08/2024 8:26 AM [facility] Alkaline Phosphatase 111 42 - 121 unit/L LAB CHEMISTRY METHOD 12/08/2024 8:26 AM [facility] Total Protein 8.3(H) 6.0 - 8.0 g/dL LAB CHEMISTRY METHOD 12/08/2024 8:26 AM [facility] Albumin 3.8 3.2 - 5.0 g/dL LAB CHEMISTRY METHOD 12/08/2024 8:26 AM [facility] Total Bilirubin 0.4 0.0 - 1.4 mg/dL LAB CHEMISTRY METHOD 12/08/2024 8:26 AM [facility] Blood Venous blood specimen / Unknown Venipuncture / Unknown 12/08/2024 7:27 AM EST 12/08/2024 7:53 AM EST Theo Lock DO LAB BLOOD ORDERABLE S [facility] [address] [place] [address], * ECG-Annotated (12/08/2024) Provider Onbase MD ECG ORDERABLES * XR Wrist 3+ Views Left (10/20/2024 2:45 PM EST) Anatomical Region Laterality Modality Upper Extremities, Wrist Left Radiogr aphic Imaging 10/20/2024 4:18 PM EST Impressions 10/20/2024 4:21 PM EST Mild diffuse degenerative changes of the carpus. If there is snuffbox tenderness, recommend immobilization with follow-up imaging in 10 days to exclude an occult scaphoid fracture. -------- FINAL REPORT -------- Dictated By: Kieran Ruiz Dictated Date: 10/20/2024 16:18 ET Assigned Physician: Kieran Ruiz Reviewed and Electronically Signed By: Kieran Ruiz Signed Date: 10/20/2024 16:21 ET Workstation ID: [id number] Transcribed By: Self Edit Transcribed Date: 10/20/2024 16:18 ET Narrative 10/20/2024 4:21 PM EST Multiple views of the left wrist, 10/20/2024. HISTORY: Ganglion cyst. COMPARISON: None. FINDINGS: The bones are diffusely demineralized. ??Mild diffuse degenerative changes of the carpus. ??No erosion. ??No bony lesion. ??Soft tissues are unremarkable. Procedure Note Kieran Ruiz MD - 10/20/2024 Multiple views of the left wrist, 10/20/2024. HISTORY: Ganglion cyst. COMPARISON: None. FINDINGS: The bones are diffusely demineralized. Mild diffuse degenerative changesof the carpus. No erosion. No bony lesion. Soft tissues areunremarkable. IMPRESSION: Mild diffuse degenerative changes of the carpus. If there is snuffbox tenderness, recommend immobilization with follow-upimaging in 10 days to exclude an occult scaphoid fracture. -------- FINAL REPORT -------- Dictated By: Kieran Ruiz Dictated Date: 10/20/2024 16:18 ET Assigned Physician: Kieran Ruiz Reviewed and Electronically Signed By: Kieran Ruiz Signed Date: 10/20/2024 16:21 ET Workstation ID: [id number] Transcribed By: Self Edit Transcribed Date: 10/20/2024 16:18 ET Varghese VILLARRELA IMИван XR PROCEDURES * XR Hand 3+ Views Left (10/20/2024 2:44 PM EST) Anatomical Region Laterality Modality Upper Extremities, Hand Left Radiogra phic Imaging 10/20/2024 4:16 PM EST Impressions 10/20/2024 4:18 PM EST No acute bony findings. -------- FINAL REPORT -------- Dictated By: Kieran Ruiz Dictated Date: 10/20/2024 16:16 ET Assigned Physician: Kieran Ruiz Reviewed and Electronically Signed By: Kieran Ruiz Signed Date: 10/20/2024 16:18 ET Workstation ID: [id number] Transcribed By: Self Edit Transcribed Date: 10/20/2024 16:16 ET Narrative 10/20/2024 4:18 PM EST Multiple views of the left hand, 10/20/2024. HISTORY: Index finger pain. COMPARISON: None. FINDINGS: The bones appear demineralized. ??No fracture or malalignment. ??No suspicious bony lesion. ??No erosion or periosteal reaction. ??Mild degenerative changes of the carpus and throughout the interphalangeal joints. ?? Procedure Note Kieran Ruiz MD - 10/20/2024 Multiple views of the left hand, 10/20/2024. HISTORY: Index finger pain. COMPARISON: None. FINDINGS: The bones appear demineralized. No fracture or malalignment. Nosuspicious bony lesion. No erosion or periosteal reaction. Milddegenerative changes of the carpus and throughout the interphalangealjoints. IMPRESSION: No acute bony findings. -------- FINAL REPORT -------- Dictated By: Kieran Ruiz Dictated Date: 10/20/2024 16:16 ET Assigned Physician: Kieran Ruiz Reviewed and Electronically Signed By: Kieran Ruiz Signed Date: 10/20/2024 16:18 ET Workstation ID: [id number] Transcribed By: Self Edit Transcribed Date: 10/20/2024 16:16 ET [facility] IMG XR PROCEDURES * Hemoglobin A1c (12/04/2023) Hemoglobin A1C 6.1 6.5 % Blood Venous blood specimen / Unknown Historical Provider LAB BLOOD ORDERAB LES * Hm Diabetes Eye Exam (11/26/2023) [facility] Diabetes: Annual Retina Eye Exam abstracted Historical Provider [facility] E * Depression Screening (11/19/2023) [facility] Depression Screening abstracted [facility] Provider [facility] E * Urine Albumin Creatinine Ratio (10/28/2022) [facility] Urine Albumin Creatinine Ratio abstracted [facility] Provider [facility] E * (ABNORMAL) Lipid panel (10/28/2022) [facility] LDL/HDL Ratio 3 4 Triglycerides 95 150 mg/dL Cholesterol 226(A) 200 mg/dL HDL 71 40 mg/dL LDL Cholesterol 136(A) 100 mg/dL Blood Venous blood specimen / Unknown Historical Provider [place] LAB BLOOD ORDERAB LES * RACHELLE SCREENING DIGITAL (04/05/2021 6:20 PM EDT) Anatomical Region Laterality Modality Mammography 04/05/2021 10:2 8 AM EDT Narrative 04/05/2021 6:20 PM EDT [facility] Diagnostic Imaging Department [address] [place] [address] Patient: ??SOL SÁNCHEZ ?/Age/Sex: 1965 - 56 - F Unit#: ??[id number] ? Location/Status: ??SPDIMAM/REG CLI ? Mnemonic/Ordering Site: ??DIGSC/SPMAM Ordering Physician: ??ZHENG BECK PA-C Rachelle Screening Digital - 04/05/21 - 1103 History: Bilateral breast cancer screening. Technique: Bilateral digital mammography. Conventional CC and MLO projections with tomosynthesis MLO views and computer aided detection. Findings: Comparison: [facility] and outside mammography 06/17/2019 through 03/09/2014. Breast tissue is mostly fatty replaced (category a density) bilaterally (as calculated by [employer] software). ??There are benign calcifications bilaterally. ?? There is no suspicious group of microcalcification, no suspicious mass, architectural distortion or suspicious asymmetry. Impression: ??No evidence of malignancy. BIRADS category 2, benign findings, 3342F 64240, [id number] Note: Patient information entered ??into a reminder system with a target due date for the next mammogram; PQRI II 9949M Dictating Physician: ??ROMARIO NAPIER MD Electronically Signed by: ??ROMARIO NAPIER MD Dic Date/Time: ??04/05/211816 Sign date/Time: ??04/05/21 182 Procedure Note Romario Napier MD - 11/12/2022 [facility] Diagnostic Imaging Department [address] [place] [address] Patient: SÁNCHEZSOL D.O.B./Age/Sex: 1965 - 56 - F Unit#: [id number] [facility] CLI Mnemonic/Ordering Site: DIGSC/SPMAM Ordering Physician: ZHENG BECK PA-C Rachelle Screening Digital - 04/05/21 - 1103 History: Bilateral breast cancer screening. Technique: Bilateral digital mammography. Conventional CC and MLOprojections with tomosynthesis MLO views and computer aided detection. Findings: Comparison: [facility] and outside mammography 06/17/2019through 03/09/2014. Breast tissue is mostly fatty replaced (category a density) bilaterally(as calculated by [employer] software). There are benigncalcifications bilaterally. There is no suspicious group of microcalcification, nosuspicious mass, architectural distortion or suspicious asymmetry. Impression: No evidence of malignancy. BIRADS category 2, benign findings, 3342F 00436, 62502 Note: Patient information entered into a reminder system with a targetdue date for the next mammogram; PQRI II 7025F Dictating Physician: ROMARIO NAPIER MD Electronically Signed by: ROMARIO NAPIER MD Dic Date/Time: 04/05/211816 Sign date/Time: 04/05/211819 [facility] IMG BI PROCEDURE S * Hepatitis C Screening (09/07/2020) Pathologist [facility] Hepatitis C Screening abstracted Historical Provider MD WESLEY FRY E * Colonoscopy (12/12/2016) Pathologist [facility] Colonoscopy no interpretation , abstracted Anatomical Region Laterality Modality Other Historical Provider MD WESLEY FRY E * Pap Smear (11/10/2006) Pathologist [facility] Pap smear no interpretation , abstracted Historical Provider MD WESLEY Baker from Last 3 Months or Most Recently Relevant to Health Maintenance Care Teams Hotel Concierge Relationship Specialty Start Date End Date Zheng Beck PA [address] [place] [address] [phone] PCP - General Primary Care 10/01/24
== END 2024-12-20 13:26 | disposition home or self-care (01) ==
PROVIDERS: PCP Physician Assistant; Visit Provider Orthopaedic Surgery
DX: T84.038A Mechanical loosening of other internal prosthetic joint, initial encounter (principal)
CPT/HCPCS: 99213

== ENCOUNTER → 2024-12-20 13:03 | Outpatient (BNVA) | payer OTHER, SELFPAY | PROVIDERS: PCP Physician Assistant; Visit Provider Orthopaedic Surgery | DX: M25.512 Pain in left shoulder (principal); Z98.890 Other specified postprocedural states | CPT/HCPCS: 99212 ==

== ENCOUNTER 2025-01-14 19:58 | Outpatient (REF) | payer OTHER, SELFPAY ==
--- NOTE | ~2025-01-14 | MR_ITS ---
CLINICAL HISTORY: Z98.890 - Other specified postprocedural states MR left shoulder without gadolinium Comparison: 11/22/2024 Findings: There is artifact related to surgical hardware in the area of the greater tuberosity. No acute fracture or pathologic bone lesion. No significant degenerative changes. No joint effusion. No rotator cuff tears. No tears of the long head of biceps tendon. Glenoid labrum is intact. IMPRESSION: Iatrogenic findings. Otherwise unremarkable left shoulder MRI. This document has been electronically signed by: López Yung MD on 01/17/2025 09:02:52
--- OUTSIDE RECORDS SUMMARY | 2025-01-14 20:00 | XMS_ITS | Encounter Summary ---
Author Organization [facility] [address] Address [address] [place] [address] Care Team Providers Care Animation Camera Operator Name Role Phone Shital Beck Primary Care Provider + Reason for Referral * Medications - Authorized Specialty Diagnoses / Procedures Referred By Contbrandy t Referred To Contact Diagnoses Class 1 obesity due to excess calories with body mass index (BMI) of 34.0 to 34.9 in adult, unspecified whether serious comorbidity present Mark Schroeder MD [address] [address] Phone: tel: fax: Referral ID Status Reason Start Date Expiration Date V isits Requested Visits Authorized [id number] Authorized 12/28/2024 01/25/2025 1 1 Reason for Visit * Reason Comments Follow-up 3 month follow up Encounter Details Date Type Department Care Team (Late st Contact Info) Description 12/28/2024 1:00 PM EST Office Visit Bariatric Surgery - [place] [address] [phone] Mark Schroeder MD [address] [address] Class 1 obesity due to excess calories with body mass index (BMI) of 34.0 to 34.9 in adult, unspecified whether serious comorbidity present (Primary Dx) Social History Tobacco Use Types Packs/Day Years Used Date Smoking Tobacco: Never Smokeless Tobacco: Never Alcohol Use Standard Drinks/Week Comments No 0 (1 standard drink = 0.6 oz pur e alcohol) Comments Unknown Sex and Gender Information Value Date Recorded Sex Assigned at Female 12/08/2024 9:05 AM EST Legal Sex Female 12:49 AM EST Gender Identity Female 12/08/2024 9:05 AM EST Sexual Orientation Straight 12/08/2024 9: 05 AM EST documented as of this encounter Last Filed Vital Signs Vital Sign Reading Time Taken Comments Blood Pressure 123/81 12/28/2024 1:15 PM EST Pulse 101 12/28/2024 1:15 PM EST Temperature 36.6 ??C (97.8 ??F) 12/28/2024 1:15 PM ES T Respiratory Rate - - Oxygen Saturation - - Inhaled Oxygen Concentration - - Weight 76.7 kg (169 lb) 12/28/2024 1:15 PM EST Height 149.9 cm (4' 11 ) 12/28/2024 1:15 PM EST Body Mass Index 34.13 12/28/2024 1:15 PM EST documented in this encounter Ordered Prescriptions Prescription Sig Dispense Quantity Refills Last Filled Start Date End Date tirzepatide, weight loss, (Zepbound) 2.5 mg/0.5 mL injectionIndicatio ns:Class 1 obesity due to excess calories with body mass index (BMI) of 34.0 to 34.9 in adult, unspecified whether serious comorbidity present Inject 0.5 mL (2.5 mg total) under the skin every 7 (seven) days for 4 doses. 2 mL 12/28/2024 2025 documented in this encounter Progress Notes * Mark Schroeder MD - 12/28/2024 1:00 PM EST Ms. Anand is a 59 y.o. year old female who presents for surgical follow up regarding obesity. HPI: Ms. Anand has lost 2 lbs since August. COVID now en November. Did not use semaglutide. Vomited after started on 0.5 mg. ROS: GENERAL: No malaise, significant unintentional weight loss, fever, chills or night sweats. HEENT: No changes in hearing or vision, no nose bleeds or other nasal problems. NECK: No lumps, goiter, pain or significant neck swelling RESPIRATORY: No cough, wheezing or shortness of breath CARDIOVASCULAR: No chest pain, leg swelling or palpitations. GI: No abdominal discomfort, nausea, vomiting, or change in bowel habits. : No dysuria, frequency or incontinence. SKIN: No lesions, rash or itching. HEMATOLOGY: No prolonged bleeding, easy bruisability. LYMPHOLOGY No swollen nodes. MUSCULOSKELETAL: No abnormalities. NEURO: No abnormalities. All other systems reviewed which are negative. PAST MEDICAL HISTORY: Patient Active Problem List Diagnosis Date Noted Date Diagnosed DM type 2 (diabetes mellitus, type 2) ([facility]) 09/03/2024 Rheumatoid factor positive 09/03/2024 Class 1 obesity due to excess calories with body mass index (BMI) of 33.0 to 33.9 in adult 09/03/2024 Rheumatoid arthritis ([facility]) 04/22/2023 Undifferentiated inflammatory arthritis ([facility]) 09/07/2020 Over weight 10/18/2019 Left knee pain 07/29/2019 Intestinal malabsorption following gastrectomy 04/08/2019 Varicose veins with pain 12/28/2018 Allergic rhinitis 08/13/2018 Asthma 08/13/2018 Hypertension 07/24/2018 Hyperlipidemia 04/24/2018 Vitamin D deficiency 04/24/2018 Gastroesophageal reflux disease 06/16/2017 Obstructive sleep apnea 04/08/2017 Depression 02/06/2015 Irritable bowel syndrome 10/04/2014 Carpal tunnel syndrome 10/05/2013 Cervical radiculopathy 03/26/2013 Anxiety 06/19/2011 PAST SURGICAL HISTORY: Past Surgical History: Procedure Laterality Date APPENDECTOMY 2001 PROCEDURE: HISTORICAL APPENDECTOMY BARIATRIC SURGERY 12/2018 PROCEDURE: ME LAPS [facility] RSTRICTIV PX LONGITUDINAL GASTRECTOMY BREAST LUMPECTOMY PROCEDURE: ---- BREAST LUMP BIOPSY ----; COMMENT: cyst removed SECTION PROCEDURE: ME DELIVERY ONLY; COMMENT: times 4 HERNIA REPAIR 2001 PROCEDURE: HISTORICAL HERNIA REPAIR/ING HYSTERECTOMY 2003 PROCEDURE: HISTORICAL HYSTERECTOMY; COMMENT: Supracervical, needs paps LEG SURGERY Left 11/22/2015 PROCEDURE: HISTORICAL LEG SURGERY; COMMENT: varicose vein ablation/microphlebectomies OTHER SURGICAL HISTORY PROCEDURE: ME LIG/TRNSXJ FLP TUBE ABDL/VAG APPR UNI/BI OTHER SURGICAL HISTORY 12/25/2018 PROCEDURE: HISTORY OTHER; COMMENT: gastrectomy SHOULDER ARTHROSCOPY Left 2014 PROCEDURE: ME SURGICAL ARTHROSCOPY SHOULDER W/LSS&RESCJ ADS SOCIAL HISTORY: Social History Tobacco Use Smoking status: Never Smokeless tobacco: Never Substance Use Topics Alcohol use: No FAMILY HISTORY: Family History Problem Relation Name Age of Onset Hypertension Mother Diabetes Mother Dementia Mother Other (Other: Other, old age) Father 99.00 No Known Problems Daughter Family Status Relation Name Status Mother at age 88 Father at age 99 Daughter Alive No partnership data on file MEDICATIONS: There are no discontinued medications. ACTIVE MEDICATIONS: No outpatient medications have been marked as taking for the 12/28/24 encounter (Office Visit) with Mark Schroeder MD. ALLERGIES: Allergies Allergen Reactions Lisinopril Other reaction(s): Cough PHYSICAL EXAM: Visit Vitals BP 123/81 Pulse 101 Temp 36.6 ??C (97.8 ??F) (Oral) Ht 1.499 m (59 ) Wt 76.7 kg (169 lb) BMI 34.13 kg/m?? Smoking Status Never BSA 1.72 m?? APPEARANCE: Alert and oriented and in no acute distress EYES: Conjunctiva normal and sclera normal and anicteric. NECK: Neck supple with no adenopathy. HEART: RRR with normal S 1 and S 2, no murmurs, no gallops. LUNG: Clear to auscultation LYMPH NODES: No gross cervical or clavicular lymphadenopathy. ABDOMEN: Bowel sounds normoactive, soft, non-tender, non-distended, EXTREMITIES: Extremities warm and well perfused without clubbing, cyanosis, or edema. SKIN: Skin color and texture normal. No rashes or lesions. NEUROLOGIC: Alert and oriented ??3. No motor or sensory deficits in the extremities. LABS/IMAGING: ASSESSMENT: 1. Class 1 obesity due to excess calories with body mass index (BMI) of 34.0 to 34.9 in adult, unspecified whether serious comorbidity present PLAN: 1. Will switch to tirzepatide. The patient is a good candidate for medical weight management given a BMI of 34.13 with the following comorbid conditions DM, HTN, hyperlipidemia. They remain dedicated to improving their health and quality of life as well as remaining physicallyactive. I have had a long discussion with the patient regarding medical weight management which includes both oral medications including stimulants/appetite suppressants versus injectable GLP-1 medications. We have decided to proceed with injectable GIP/GLP-1 medication - tirzepatide. The risks and benefits of this medication were discussed in length with the patient. Benefits include weight loss and overall healthier lifestyle with he hopes of improving any co morbid conditions. Risks include nausea/vomiting, diarrhea, injection site reaction, gastroparesis. We have also discussed the potential for thyroid cancer and multiple endocrine neoplasia; patient denies family history of either condition. We discussed that this medication should be used long-term and that obesity will be treated as a chronic condition. If and when patient stops this medication weight may come back. 2. The patient will let us know in few weeks if the medication is being effective or if the patientis having side effects. The dose will be adjusted depending upon the response and the presence of side effects. Follow-up in 3 months. documented in this encounter Plan of Treatment Upcoming Encounters Date Type Department Care Team (Late st Contact Info) Description 04/26/2025 4:15 PM EDT Office Visit Bariatric Surgery - [place] [address] [phone] Mark Schroeder MD [address] [address] 06/10/2025 9:00 AM EDT Office Visit Internal Medicine - [place] [address] [phone] Shital Beck PA [address] [phone] documented as of this encounter Visit Diagnoses Diagnosis Class 1 obesity due to excess calories with body mass index (BMI) of 34.0 to 34.9 in adult, unspecified whether serious comorbidity present- Primary documented in this encounter Care Teams Animation Camera Operator Relationship Specialty Start Date End Date Shital Beck PA [address] [phone] PCP - General Primary Care 10/01/24 documented as of this encounter
--- OUTSIDE RECORDS SUMMARY | 2025-01-14 20:00 | XMS_ITS | Clinical Summary ---
Author Organization 175 [facility] Address [address] [place] [address] Phone Care Team Providers Care Home Health Specialist Name Role Phone Zheng Beck Primary Care Provider + Allergies Active Allergy Reactions Criticality Noted Date Comments Lisinopril 06/16/2017 Other reaction(s): Cough Medications adalimumab (HUMIRA PEN SUBQ) Inject 40 mg [...] BEDTIME 90 tablet 3 11/02/20 24 Active tirzepatide, weight loss, (Zepbound) 2.5 mg/0.5 mL injectionIndicatio ns:Class 1 obesity due to excess calories with body mass index (BMI) of 34.0 to 34.9 in adult, unspecified whether serious comorbidity present Inject 0.5 mL (2.5 mg total) under the skin every 7 (seven) days for 4 doses. 2 mL 12/28/19 25 025 Active famotidine (PEPCID) 20 mg tablet Take 1 tablet (20 mg total) by mouth 2 (two) times a day for 15 days. 30 tablet 12/08/19 25 025 ondansetron ODT (ZOFRAN-ODT) 4 mg [...] Rheumatoid arthritis 04/22/2023 Undifferentiated inflammatory arthritis 09/07/20 Over weight 10/18/2019 Left knee pain 07/29/2019 [...] Encounters Date Type Department Care Team Description 12/28/2024 1:00 PM EST Office Visit Bariatric Surgery - [address] [place] [address] Mark [place] MD Class 1 obesity due to excess calories with body mass index (BMI) of 34.0 to 34.9 in adult, unspecified whether serious comorbidity present (Primary Dx) 12/09/2024 10:30 AM EST Office Visit Internal Medicine - [place] 175 [facility] [address] [place] [phone] Zheng Beck PA Nausea and vomiting, unspecified vomiting type (Primary Dx); Epigastric abdominal pain 12/08/2024 10:11 AM EST - 12/08/2024 1:13 PM EST Emergency [facility] Emergency [address] [place] [phone] Epigastric pain (Primary Dx); Nausea and vomiting, unspecified vomiting type Discharge Disposition: Home or Self Care 11/27/2024 11:30 AM EST Office Visit Walk-In Clinic - [place] [address] [place] [phone] Natanael Henry PA COVID (Primary Dx) 11/03/2024 Telephone Bariatric Surgery - [place] 175 [facility] [address] [place] [phone] Mark [place] MD Med Refill ([email or web address]) 10/20/2024 2:38 PM EST - 10/20/2024 11:59 PM EST Hospital Encounter [facility] Xray [address] [place] [phone] Pain Discharge Disposition: Home or Self Care 10/20/2024 2:29 PM EST - 10/20/2024 11:59 PM EST Hospital Encounter [facility] Xray [address] [place] [phone] Fracture Discharge Disposition: Home or Self Care from Last 3 Months Immunizations Name Administration Dates Next Due Influenza Quadravalent, MDCK , 0.5ml, preservative free (Flucelvax) 6mo and older 10/27/2020 Influenza trivalent, 0.5mL, preservative free (Fluarix; FluLaval; Fluzone) ages 6mo and older (Afluria) 3 years and older 10/05/2013 Accellos SARS-CoV-2 COVID-19, mRNA, LNP-S, preservative free 09/16/2022,09/10/2021,01/30/2021,01/11 Pneumococcal polysaccharide 23 valent (Pneumovax 23) 2yo and older 02/13/2017 Surgical History Surgery Date Site/Laterality Comments SECTION PROCEDURE: [place] DELIVERY ONLY; COMMENT: times 4 OTHER SURGICAL HISTORY PROCEDURE: [place] LIG/TRNSXJ FLP TUBE ABDL/VAG APPR UNI/BI HYSTERECTOMY 2003 PROCEDURE: HISTORICAL HYSTERECTOMY; COMMENT: Supracervical, needs paps BREAST LUMPECTOMY PROCEDURE: ---- BREAST LUMP BIOPSY ----; COMMENT: cyst removed APPENDECTOMY 2001 PROCEDURE: HISTORICAL APPENDECTOMY HERNIA REPAIR 2001 PROCEDURE: HISTORICAL HERNIA REPAIR/ING SHOULDER ARTHROSCOPY 2013 Left PROCEDURE: [place] SURGICAL ARTHROSCOPY SHOULDER W/LSS&RESCJ ADS OTHER SURGICAL HISTORY 12/25/2018 PROCEDURE: HISTORY OTHER; COMMENT: gastrectomy LEG SURGERY 11/22/2015 Left PROCEDURE: HISTORICAL LEG SURGERY; COMMENT: varicose vein ablation/microphlebectomies BARIATRIC SURGERY 12/2018 PROCEDURE: [place] LAPS GSTRC RSTRICTIV PX LONGITUDINAL GASTRECTOMY Medical [...] type 2 (diabetes mellitus , type 2) ([facility]) DX:DM type 2 (diabetes melli tus, type 2) ([facility]); COMMENT: 12/2018 No diabetes medication since bariatric surgery History of bariatric surgery 01/14/2019 DX: History of bariatric surgery; COMMENT: 12/2018 lap vertical sleeve Morbid obesity with BMI of 4 0.0-44.9, adult ([facility]) 10/04/2014 DX:Morbid obesity with BMI o f 40.0-44.9, adult ([facility]); COMMENT: 12/2018 post sleeve gastrectomy Rheumatoid factor positive DX:Rh eumatoid factor positive; COMMENT: Rh factor = 1160 on 07/19/20 Undifferentiated inflammator y arthritis (CMS/HCC) 09/07/2020 DX:Undifferentiated inflamma tory arthritis (HCC) Rheumatoid arthritis (CMS/HCC) D X:Rheumatoid arthritis (HCC) Family History Medical History Relation Name Comments [...] Orientation Straight 12/08/2024 9: 05 AM EST Obstetrics History Last Filed Vital Signs Vital Sign Reading Time Taken Comments Blood Pressure 123/81 12/28/2024 1:15 PM EST Pulse 101 12/28/2024 1:15 PM EST Temperature 36.6 ??C (97.8 ??F) 12/28/2024 1:15 PM ES T Respiratory Rate 16 12/08/2024 1:04 PM EST Oxygen Saturation 96% 12/09/2024 10:19 AM EST Inhaled Oxygen Concentration - - Weight 76.7 kg (169 lb) 12/28/2024 1:15 PM EST Height 149.9 cm (4' 11 ) 12/28/2024 1:15 PM EST Body Mass Index 34.13 12/28/2024 1:15 PM EST Plan of Treatment Upcoming Encounters Date Type Department Care Team (Late st Contact Info) Description 04/26/2025 4:15 PM EDT Office Visit Bariatric Surgery - [place] 175 [facility] [address] [place] [address] Mark [place] MD 175 [facility] [address] [place] [address] 06/10/2025 9:00 AM EDT Office Visit Internal Medicine - [place] 175 [facility] [address] [place] [address] Zheng Beck, CHERELLE [address] [facility] [address] [place] [address] Health Maintenance Due Date Last Done Comments Diabetes: Annual Foot Exam 1975 DTaP,Tdap,and Td Vaccines (1 - Tdap) 1984 Hepatitis B Vaccines (1 of 3 - 19+ 3-dose series) 1984 Cervical Cancer Screening: Pap Smear 11/10/2009 11/10/2006 Pneumococcal Vaccine: 50+ Years (2 of 2 - PCV) 02/13/2018 02/13/2017, 04/14/2013 Pneumococcal Vaccine: Pediatrics (0 to 5 Years) [...] patient's age to complete this topic Meningococcal B Vacine Aged Out No lo nger eligible based on patient's age to complete [...] PM EST Pain HEMOGLOBIN A1C Routine 12/04/2023 [facility] DIABETES EYE EXAM Routine 11/26/2023 DEPRESSION SCREENING Routine 11/19/2023 URINE ALBUMIN CREATININE RATIO Routine 10/28/2022 LIPID PANEL Routine 10/28/2022 [facility] SCREENING DIGITAL Routine 04/05/2021 6:20 PM EDT [...] biliary obstruction. 2. Fatty liver. Telerad CHERELLE ([id number]) -------- FINAL REPORT -------- Dictated By: Karla Moore Dictated Date: 12/08/2024 11:56 ET Assigned Physician: Karla Moore Reviewed and Electronically Signed By: Karla Moore Signed Date: 12/08/2024 11:58 ET Workstation ID: [id number] Transcribed By: Self Edit Transcribed Date: 12/08/2024 [...] or biliaryobstruction. 2. Fatty liver. Magalie VILLARREAL ([id number]) -------- FINAL REPORT -------- Dictated By: Karla Moore Dictated Date: 12/08/2024 11:56 ET Assigned Physician: Karla Moore Reviewed and Electronically Signed By: Karla Moore Signed Date: 12/08/2024 11:58 ET Workstation ID: [id number] Transcribed By: Self Edit Transcribed Date: 12/08/2024 11:56 ET us Georgie VILLARREAL IMG US PROCEDURES Gifty l Result * ECG 12 lead (12/08/2024 7:32 AM EST) Ventricular Rate ECG 90 BPM GEMUSE Atrial Rate 90 BPM GEMUSE P-R Interval 178 ms GEMUSE QRS Duration 82 ms GEMUSE Q-T Interval 388 ms GEMUSE QTc 474 ms GEMUSE P Wave [place] 39 degrees GEMUSE R [place] 10 degrees GEMUSE T [place] 19 degrees GEMUSE ECG Interpretation Normal sinus rhythm Nonspecific T wave abnormality Abnormal ECG When compared with ECG of 15-DEC-2018 09:13, Nonspecific T wave abnormality now noted Confirmed by CLARITA GARCIA ([id number]) on 12/09/2024 10:42:33 AM GEMUSE 12/08/2024 7:32 AM EST 12/09/2024 10:42 AM EST us Nerissa VILLARREAL ECG ORDERABLES Final Result GEMUSE * CBC auto differential (12/08/2024 7:27 AM EST) WBC 6.7 4.8 - 10.8 K/mcL LAB HEMETOLOGY METHOD 12/08/2024 7:58 AM [facility] RBC 4.20 3.80 - 4.80 M/[facility] LAB HEMETOLOGY METHOD 12/08/2024 7:58 AM [facility] Hemoglobin 12.9 11.5 - 16.0 g/dL LAB HEMETOLOGY METHOD 12/08/2024 7:58 AM [facility] Hematocrit 37.9 35.0 - 47.0 % LAB HEMETOLOGY METHOD 12/08/2024 7:58 AM [facility] MCV 90.2 79.0 - 98.0 FL LAB HEMETOLOGY METHOD 12/08/2024 7:58 AM [facility] MCH 30.7 27.0 - 32.0 pcg LAB HEMETOLOGY METHOD 12/08/2024 7:58 AM [facility] MCHC 34.0 32.0 - 37.0 g/dL LAB HEMETOLOGY METHOD 12/08/2024 7:58 AM [facility] RDW 11.9 11.0 - 15.0 % LAB HEMETOLOGY METHOD 12/08/2024 7:58 AM [facility] Platelets 355 130 - 400 K/mcL LAB HEMETOLOGY METHOD 12/08/2024 7:58 AM [facility] MPV 9.5 7.0 - 11.0 FL LAB HEMETOLOGY METHOD 12/08/2024 7:58 AM [facility] NRBC 0.0 <1.0 % LAB HEMETOLOGY METHOD 12/08/2024 7:58 AM [facility] NRBC Absolute 0.00 <0.10 K/mcL LAB HEMETOLOGY METHOD 12/08/2024 7:58 AM [facility] Neutrophils Relative 62.9 % LAB HEMETOLOGY METHOD 12/08/2024 7:58 AM [facility] Lymphocytes Relative 29.4 % LAB HEMETOLOGY METHOD 12/08/2024 7:58 AM [facility] Monocytes Relative 6.4 % LAB HEMETOLOGY METHOD 12/08/2024 7:58 AM [facility] Eosinophils Relative 0.9 % LAB HEMETOLOGY METHOD 12/08/2024 7:58 AM [facility] Basophils Relative 0.3 % LAB HEMETOLOGY METHOD 12/08/2024 7:58 AM [facility] Immature Granulocytes Relative 0.1 % LAB HEMETOLOGY METHOD 12/08/2024 7:58 AM [facility] Neutrophils Absolute 4.19 1.50 - 7.00 K/mcL LAB HEMETOLOGY METHOD 12/08/2024 7:58 AM [facility] Lymphocytes Absolute 1.96 1.00 - 5.00 K/mcL LAB HEMETOLOGY METHOD 12/08/2024 7:58 AM [facility] Monocytes Absolute 0.43 0.20 - 1.00 K/mcL LAB HEMETOLOGY METHOD 12/08/2024 7:58 AM EST [facility] Eosinophils Absolute 0.06 0.00 - 0.50 K/[facility] LAB HEMETOLOGY METHOD 12/08/2024 7:58 AM EST [facility] Basophils Absolute 0.02 0.00 - 0.20 K/[facility] LAB HEMETOLOGY METHOD 12/08/2024 7:58 AM EST [facility] Immature Granulocytes Absolute 0.01 0.00 - 0.03 K/[facility] LAB HEMETOLOGY METHOD 12/08/2024 7:58 AM EST [facility] Blood Venous blood specimen / Unknown Venipuncture / Unknown 12/08/2024 7:27 AM EST 12/08/2024 7:53 AM EST Theo Lock LAB BLOOD ORDERABLES Final Result [facility] [address] [place] [address], [place] [phone] * Lipase (12/08/2024 7:27 AM EST) Pathologist [facility] Lipase 28 13 - 75 unit/L LAB CHEMISTRY METHOD 12/08/2024 8:26 AM EST [facility] Blood Venous blood specimen / Unknown Venipuncture / Unknown 12/08/2024 7:27 AM EST 12/08/2024 7:53 AM EST Theo Lock LAB BLOOD ORDERABLES Final Result [facility] [address] [place] [address], [place] [phone] * (ABNORMAL) Comprehensive metabolic panel (12/08/2024 7:27 AM EST) Sodium 135 133 - 145 mmol/L LAB CHEMISTRY METHOD 12/08/2024 8:26 AM [facility] Potassium 4.4 3.5 - 5.5 mmol/L LAB CHEMISTRY METHOD 12/08/2024 8:26 AM [facility] Chloride 98 96 - 110 mmol/L LAB CHEMISTRY METHOD 12/08/2024 8:26 AM [facility] CO2 30 21 - 32 mmol/L LAB CHEMISTRY METHOD 12/08/2024 8:26 AM [facility] Anion Gap 7 3 - 11 LAB CHEMISTRY METHOD 12/08/2024 8:26 AM [facility] Glucose 188(H) 70 - 100 mg/dL LAB CHEMISTRY METHOD 12/08/2024 8:26 AM [facility] BUN 9 5 - 25 mg/dL LAB CHEMISTRY METHOD 12/08/2024 8:26 AM [facility] Creatinine 0.69 0.50 - 1.10 mg/dL LAB CHEMISTRY METHOD 12/08/2024 8:26 AM [facility] eGFR 100 >=60 mL/min/1. 73m2 LAB CHEMISTRY METHOD 12/08/2024 8:26 AM [facility] Comment:Calculation based on the??Chronic Kidney Disease Epidemiology Collaboration (CKD-EPI) equation refit??without adjustment for race. BUN/Creatinine Ratio 13.0 LAB CHEMISTRY METHOD 12/08/2024 8:26 AM [facility] Calcium 9.9 8.5 - 10.5 mg/dL LAB CHEMISTRY METHOD 12/08/2024 8:26 AM [facility] AST (SGOT) 24 10 - 42 unit/L LAB CHEMISTRY METHOD 12/08/2024 8:26 AM [facility] ALT (SGPT) 23 10 - 60 unit/L LAB CHEMISTRY METHOD 12/08/2024 8:26 AM [facility] Alkaline Phosphatase 111 42 - 121 unit/L LAB CHEMISTRY METHOD 12/08/2024 8:26 AM [facility] Total Protein 8.3(H) 6.0 - [...] AM EST Theo Lock DO LAB BLOOD ORDERABLES Final Result [facility] [address] [place] [address], * ECG-Annotated (12/08/2024) Provider Onbase MD ECG ORDERABLES Final Result * XR Wrist 3+ Views Left (10/20/2024 [...] Signed Date: 10/20/2024 16:21 ET Workstation ID: [id number] Transcribed By: Self Edit Transcribed Date: 10/20/2024 [...] Signed Date: 10/20/2024 16:21 ET Workstation ID: [id number] Transcribed By: Self Edit Transcribed Date: 10/20/2024 16:18 ET us Varghese VILLARREAL IMG XR PROCEDURES Final Res ult * XR Hand 3+ Views Left (10/20/2024 2:44 PM EST) Anatomical Region Laterality Modality Upper Extremities, Hand Left Radiogra [facility] Imaging 10/20/2024 4:16 PM EST Impressions 10/20/2024 4:18 PM EST No acute bony findings. -------- FINAL REPORT -------- Dictated By: Kieran Ruiz Dictated Date: 10/20/2024 16:16 ET Assigned Physician: Kieran Ruiz Reviewed and Electronically Signed By: Kieran Ruiz Signed Date: 10/20/2024 16:18 ET Workstation ID: [id number] Transcribed By: Self Edit Transcribed Date: 10/20/2024 [...] Signed Date: 10/20/2024 16:18 ET Workstation ID: [id number] Transcribed By: Self Edit Transcribed Date: 10/20/2024 16:16 ET Result [facility] Varghese VILLARREAL IMG XR PROCEDURES Final Res ult * Hemoglobin A1c (12/04/2023) [facility] Hemoglobin A1C 6.1 <=6.5 % Blood Venous blood specimen / Unknown Result [facility] Historical Provider LAB BLOOD ORDERABLES Gifty l Result * Diabetes Eye Exam (11/26/2023) [facility] Diabetes: Annual Retina Eye Exam abstracted Result [facility] Historical Provider HEALTH MAINTENANCE Final Result * Depression Screening (11/19/2023) Pathologist [facility] Depression Screening abstracted Result [facility] Historical Provider HEALTH MAINTENANCE Final Result * HM Urine Albumin Creatinine Ratio (10/28/2022) HM Urine Albumin Creatinine Ratio abstracted Historical Provider HEALTH MAINTENANCE Final Result * (ABNORMAL) Lipid panel (10/28/2022) LDL/HDL Ratio 3 <=4 Triglycerides 95 <=150 mg/dL Cholesterol 226(A) <=200 mg/dL HDL 71 >=40 mg/dL LDL Cholesterol 136(A) <=100 mg/dL Blood Venous blood specimen / Unknown Historical Provider LAB BLOOD ORDERABLES Gifty l Result * RACHELLE SCREENING DIGITAL (04/05/2021 6:20 PM EDT) Anatomical Region Laterality Modality Mammography 04/05/2021 10:2 8 AM EDT Narrative 04/05/2021 6:20 PM EDT [facility] Diagnostic Imaging Department [address] [place] [address] Patient: ??SOL SÁNCHEZ ?/Age/Sex: 1965 - 56 - F Unit#: ??[id number] ? Location/Status: ??SPDIMAM/REG CLI ? Mnemonic/Ordering Site: ??DIGSC/SPMAM Ordering Physician: ??ZHENG BECK PA-C Rachelle Screening Digital - 04/05/21 - 1103 History: Bilateral breast cancer screening. Technique: Bilateral digital mammography. Conventional CC and MLO projections with tomosynthesis MLO views and computer aided detection. Findings: Comparison: [facility] and outside mammography 06/17/2019 through 03/09/2014. Breast tissue is mostly fatty replaced (category a density) bilaterally (as calculated by [employer] software). ??There are benign calcifications bilaterally. ?? There is no suspicious group of microcalcification, no suspicious mass, architectural distortion or suspicious asymmetry. Impression: ??No evidence of malignancy. BIRADS category 2, benign findings, 3342F 19498, [address]6561 Note: Patient information entered ??into a reminder system with a target due date for the next mammogram; PQRI II 0648A Dictating Physician: ??ROMARIO NAPIER MD Electronically Signed by: ??ROMARIO NAPIER MD Dic Date/Time: ??04/05/211816 Sign date/Time: ??04/05/21 1820 Procedure Note Romario Napier MD - 11/12/2022 [facility] Diagnostic Imaging Department [address] [place] [address] Patient: SOL SÁNCHEZ./Age/Sex: 1965 - 56 - F Unit#: [id number] [facility]emonic/Ordering Site: [facility] Ordering Physician: ZHENG BECK PA-C Rachelle Screening Digital - 04/05/21 - 1103 History: Bilateral breast cancer screening. Technique: Bilateral digital mammography. Conventional CC and MLOprojections with tomosynthesis MLO views and computer aided detection. Findings: Comparison: [facility] and outside mammography 06/17/2019through 03/09/2014. Breast tissue is mostly fatty replaced (category a density) bilaterally(as calculated by [employer] software). There are benigncalcifications bilaterally. There is no suspicious group of microcalcification, nosuspicious mass, architectural distortion or suspicious asymmetry. Impression: No evidence of malignancy. BIRADS category 2, benign findings, 3342F 98948, [address] Note: Patient information entered into a reminder system with a targetdue date for the next mammogram; PQRI II 7037F Dictating Physician: ROMARIO NAPIER MD Electronically Signed by: ROMARIO NAPIER MD Dic Date/Time: 04/05/211816 Sign date/Time: 04/05/211819 Zheng VILLARREAL IMG BI PROCEDURES Final Result * Hepatitis C Screening (09/07/2020) Hepatitis C Screening abstracted Historical Provider HEALTH MAINTENANCE Final Result * Colonoscopy (12/12/2016) Colonoscopy no interpretation , abstracted Anatomical Region Laterality Modality Other Historical Provider HEALTH MAINTENANCE Final Result * Pap Smear (11/10/2006) Pap smear no interpretation , abstracted Historical Provider HEALTH MAINTENANCE Final Result from Last 3 Months or Most Recently Relevant to Health Maintenance Insurance [facility] Care Teams Home Health Specialist Relationship Specialty Start Date End Date Zheng Beck PA [address] [address] PCP - General Primary Care 10/01/24
== END 2025-01-14 19:59 | disposition home or self-care (01) ==
LOC: HO.MRI 19:58
PROVIDERS: PCP Physician Assistant; Visit Provider Orthopaedic Surgery
DX: Z98.890 Other specified postprocedural states (principal)
CPT/HCPCS: 73221

== ENCOUNTER → 2025-01-14 20:08 | Outpatient (BNV) | payer OTHER, SELFPAY | PROVIDERS: PCP Physician Assistant; Visit Provider Specialist | DX: Z98.890 Other specified postprocedural states (principal) | CPT/HCPCS: 73221 ==

== ENCOUNTER 2025-02-21 10:50 | Outpatient (AMB) | payer OTHER, SELFPAY ==
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
--- OUTSIDE RECORDS SUMMARY | 2025-02-21 12:16 | XMS_ITS | Clinical Summary ---
Author Organization 175 [facility] Address [address] [place] [address] Phone Care Team Providers Care Telephone Technician Name Role Phone Zheng Beck Primary Care [...] as needed for Allergies. 12/08/19 24 Active cholecalcifero l (VITAMIN D-3) 50 mcg (2,000 unit) capsule [...] mouth 1 (one) time each day. Active hydroxychloroq uine (PLAQUENIL) 200 mg tablet Take 1 tablet [...] 02/03/20 24 Active amitriptyline (ELAVIL) 50 mg tabletIndicati ons:Headache, unspecified TAKE 1 TABLET BY MOUTH EVERYDAY AT BEDTIME 90 tablet 3 11/02/20 24 Active tirzepatide, weight loss, (Zepbound) 2.5 mg/0.5 mL injectionIndic ations:Class 1 obesity due to excess calories with body mass index (BMI) of 34.0 to 34.9 in adult, unspecified whether serious comorbidity present INJECT 0.5 ML (2.5 MG TOTAL) UNDER THE SKIN EVERY 7 (SEVEN) DAYS FOR 4 DOSES. 2 mL 02/04/20 25 025 Active multivitamin tablet TAKE 1 TABLET BY MOUTH EVERY DAY 90 tablet 3 02/02/20 25 Active tirzepatide, weight loss, (Zepbound) 2.5 mg/0.5 mL injectionIndic ations:Class 1 obesity due to excess calories with body mass index (BMI) of 34.0 to 34.9 in adult, unspecified whether serious comorbidity present Inject 0.5 mL (2.5 mg total) under the skin every 7 (seven) days for 4 doses. 2 mL 12/28/19 25 025 Discontinued Active Problems Problem Noted Date Diagnosed Date [...] PM EST Office Visit Bariatric Surgery - [address] [place] [phone] Mark Schroeder MD Class 1 obesity due to excess calories with body mass index (BMI) of 34.0 to 34.9 in adult, unspecified whether serious comorbidity present (Primary Dx) 12/09/2024 10:30 AM EST Office Visit Internal Medicine - [place] 175 [facility] [address] [place] [address] Zheng Beck PA Nausea and vomiting, unspecified vomiting type (Primary Dx); Epigastric abdominal pain 12/08/2024 10:11 AM EST - 12/08/2024 1:13 PM EST Emergency [facility] Emergency [address] [place] [address] Epigastric pain (Primary Dx); Nausea and vomiting, unspecified vomiting type Discharge Disposition: Home or Self Care 11/27/2024 11:30 AM EST Office Visit Walk-In Clinic - [place] [address] [place] [address] Natanael Henry PA COVID (Primary Dx) from Last 3 Months Immunizations Name Administration [...] History Surgery Date Site/Laterality Comments SECTION PROCEDURE: [place] DELIVERY ONLY; COMMENT: times 4 OTHER SURGICAL HISTORY PROCEDURE: [place] LIG/TRNSXJ FLP TUBE ABDL/VAG APPR UNI/BI HYSTERECTOMY 2003 PROCEDURE: HISTORICAL HYSTERECTOMY; COMMENT: Supracervical, needs paps BREAST LUMPECTOMY PROCEDURE: ---- BREAST LUMP BIOPSY ----; COMMENT: cyst removed APPENDECTOMY 2001 PROCEDURE: HISTORICAL APPENDECTOMY HERNIA REPAIR 2001 PROCEDURE: HISTORICAL HERNIA REPAIR/ING SHOULDER ARTHROSCOPY 2013 Left PROCEDURE: [place] SURGICAL ARTHROSCOPY SHOULDER W/LSS&RESCJ ADS OTHER SURGICAL HISTORY 12/25/2018 PROCEDURE: HISTORY OTHER; COMMENT: gastrectomy LEG SURGERY 11/22/2015 Left PROCEDURE: HISTORICAL LEG SURGERY; COMMENT: varicose vein ablation/microphlebectomies BARIATRIC SURGERY 12/2018 PROCEDURE: IL LAPS GSTRC RSTRICTIV PX LONGITUDINAL GASTRECTOMY Medical [...] type 2 (diabetes mellitus , type 2) ([facility]) DX:DM type 2 (diabetes melli tus, type 2) ([facility]); COMMENT: 12/2018 No diabetes medication since bariatric surgery History of bariatric surgery 01/14/2019 DX: History of bariatric surgery; COMMENT: 12/2018 lap vertical sleeve Morbid obesity with BMI of 4 0.0-44.9, adult ([facility]) 10/04/2014 DX:Morbid obesity with BMI o f 40.0-44.9, adult ([facility]); COMMENT: 12/2018 post sleeve gastrectomy Rheumatoid factor positive DX:Rh eumatoid factor positive; COMMENT: Rh factor = 1160 on 07/19/20 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) Rheumatoid arthritis ([facility]) D X:Rheumatoid arthritis ([facility]) Family History Medical History Relation Name Comments [...] PM EDT Office Visit Bariatric Surgery - [place] [address] [phone] Mark Schroeder MD [address] [address] 06/10/2025 9:00 AM EDT Office Visit Internal Medicine - [place] [address] [phone] Zheng Beck PA [address] [address] Health Maintenance Due Date Last Done Comments Diabetes: Annual Foot Exam 1975 DTaP,Tdap,and Td Vaccines (1 - Tdap) 1984 Cervical Cancer Screening: Pap Smear 11/10/2009 [...] Zoster Vaccines (2 of 2) 11/30/2024 10/05/2024 RSV Immunization Patients 60+ Years Old (1 - Risk 60-74 years 1-dose series) 2025 Diabetes: Annual GFR (Glomerular Filtration Rate) 02/11/2026 02/11/2025, 12/08/2024, 04/03/2023 Hypertension/CHF/CAD Annual BMP Blood Test 02/11/2026 02/11/2025, 12/08/2024, 04/03/2023 Colorectal Cancer Screening: Colonoscopy 12/12/2026 12/12/2016 Cholesterol Screening (Lipid Panel) 10/28/2027 10/28/2022 Hepatitis C Screening Completed 09/07/2020 Influenza Vaccine Completed 09/06/2024, , 10/05/2013 HIB Vaccines Aged Out No longer eligi ble based on patient's age to complete this topic HPV Vaccines Aged Out No longer eligi ble based on patient's age to complete this topic Hepatitis A Vaccines Aged Out No long er eligible based on patient's age to complete this topic Hepatitis B Vaccines Aged Out No long er eligible [...] Procedure Name Priority Date/Time Associated Diagnosis Comments COMPREHENSIVE METABOLIC PANEL Routine 02/11/2025 1:44 PM EDT Drug therapy US ABDOMEN LIMITED STAT 12/08/2024 11 :52 AM EST ECG 12-LEAD STAT 12/08/2024 7:32 AM EST CBC WITH AUTO DIFFERENTIAL STAT 12/08/2024 7:27 AM EST LIPASE STAT 12/08/2024 7:27 AM EST COMPREHENSIVE METABOLIC PANEL STAT 12/08/2024 7:27 AM EST CBC AND DIFFERENTIAL STAT 12/08/2024 7:27 AM EST ECG ANNOTATED 12/08/2024 HEMOGLOBIN A1C Routine 12/04/2023 HM DIABETES EYE EXAM Routine 11/26/2023 HM DEPRESSION SCREENING Routine 11/19/2023 HM URINE ALBUMIN CREATININE RATIO Routine 10/28/2022 LIPID PANEL Routine 10/28/2022 RACHELLE SCREENING DIGITAL Routine 04/05/2021 6:20 PM EDT Encounter for screening mammogram for malignant neoplasm of breast HM HEPATITIS C SCREENING Routine 09/07/2020 HM COLONOSCOPY Routine 12/12/2016 HM PAP SMEAR Routine 11/10/2006 from Last 3 Months or Most Recently Relevant to Health Maintenance Results * (ABNORMAL) Comprehensive metabolic panel (02/11/2025 1:44 PM EDT) Only the most recent of2 resultswithin the time period is included. Sodium 137 133 - 145 mmol/L LAB CHEMISTRY METHOD 02/11/2025 6:07 PM [facility] Potassium 4.0 3.5 - 5.5 mmol/L LAB CHEMISTRY METHOD 02/11/2025 6:07 PM [facility] Chloride 101 96 - 110 mmol/L LAB CHEMISTRY METHOD 02/11/2025 6:07 PM [facility] CO2 30 21 - 32 mmol/L LAB CHEMISTRY METHOD 02/11/2025 6:07 PM [facility] Anion Gap 6 3 - 11 LAB CHEMISTRY METHOD 02/11/2025 6:07 PM [facility] Glucose 107(H) 70 - 100 mg/dL LAB CHEMISTRY METHOD 02/11/2025 6:07 PM [facility] BUN 12 5 - 25 mg/dL LAB CHEMISTRY METHOD 02/11/2025 6:07 PM [facility] Creatinine 0.61 0.50 - 1.10 mg/dL LAB CHEMISTRY METHOD 02/11/2025 6:07 PM [facility] eGFR 102 >=60 mL/min/1. 73m2 LAB CHEMISTRY METHOD 02/11/2025 6:07 PM [facility] Comment:Calculation based on the??Chronic Kidney Disease Epidemiology Collaboration (CKD-EPI) equation refit??without adjustment for race. BUN/Creatinine Ratio 19.7 LAB CHEMISTRY METHOD 02/11/2025 6:07 PM [facility] Calcium 9.9 8.5 - 10.5 mg/dL LAB CHEMISTRY METHOD 02/11/2025 6:07 PM [facility] AST (SGOT) 23 10 - 42 unit/L LAB CHEMISTRY METHOD 02/11/2025 6:07 PM EDT [facility] ALT (SGPT) 24 10 - 60 unit/L LAB CHEMISTRY METHOD 02/11/2025 6:07 PM EDT [facility] Alkaline Phosphatase 100 42 - 121 unit/L LAB CHEMISTRY METHOD 02/11/2025 6:07 PM EDT [facility] Total Protein 8.3(H) 6.0 - 8.0 g/dL LAB CHEMISTRY METHOD 02/11/2025 6:07 PM EDT [facility] Albumin 3.9 3.2 - 5.0 g/dL LAB CHEMISTRY METHOD 02/11/2025 6:07 PM EDT [facility] Total Bilirubin 0.3 0.0 - 1.4 mg/dL LAB CHEMISTRY METHOD 02/11/2025 6:07 PM EDT [facility] Blood Venous blood specimen / Unknown Venipuncture / Unknown 02/11/2025 1:44 PM EDT 02/11/2025 1:44 PM EDT us Varghese VILLARREAL LAB BLOOD ORDERABLES Final Result [facility] [address] [place] [address], * US Abdomen Limited (12/08/2024 11:52 AM EST) Anatomical Region Laterality Modality Body Ultrasound 12/08/2024 11:5 6 AM EST Impressions 12/08/2024 11:58 AM EST Impression: 1. Cholelithiasis. No evidence of acute cholecystitis or biliary obstruction. 2. Fatty liver. Magalie VILLARREAL ([id number]) -------- FINAL REPORT -------- Dictated By: Karla Moore Dictated Date: 12/08/2024 11:56 ET Assigned Physician: Karla Moore Reviewed and Electronically Signed By: Karla Moore Signed Date: 12/08/2024 11:58 ET Workstation ID: [id number] Transcribed By: Self Edit Transcribed Date: 12/08/2024 [...] or biliaryobstruction. 2. Fatty liver. Magalie VILLARREAL ([id number]) -------- FINAL REPORT -------- Dictated By: Karla Moore Dictated Date: 12/08/2024 11:56 ET Assigned Physician: Karla Moore Reviewed and Electronically Signed By: Karla Moore Signed Date: 12/08/2024 11:58 ET Workstation ID: [id number] Transcribed By: Self Edit Transcribed Date: 12/08/2024 11:56 ET Georgie VILLARREAL IMG US PROCEDURES Gifty l Result * ECG 12 lead (12/08/2024 7:32 AM EST) Ventricular Rate ECG 90 BPM GEMUSE Atrial Rate 90 BPM GEMUSE P-R Interval 178 ms GEMUSE QRS Duration 82 ms GEMUSE Q-T Interval 388 ms GEMUSE QTc 474 ms GEMUSE P Wave [place] 39 degrees GEMUSE R [place] 10 degrees GEMUSE T [place] 19 degrees GEMUSE ECG Interpretation Normal sinus rhythm Nonspecific T wave abnormality Abnormal ECG When compared with ECG of 15-DEC-2018 09:13, Nonspecific T wave abnormality now noted Confirmed by CLARITA GARCIA ([id number]) on 12/09/2024 10:42:33 AM GEMUSE 12/08/2024 7:32 AM EST 12/09/2024 10:42 AM EST us Nerissa VILLARREAL ECG ORDERABLES Final Result GEMUSE * CBC auto differential (12/08/2024 7:27 AM EST) Pathologist [facility] WBC 6.7 4.8 - 10.8 K/mcL LAB HEMETOLOGY METHOD 12/08/2024 7:58 AM EST [facility] RBC 4.20 3.80 - 4.80 M/mcL LAB HEMETOLOGY METHOD 12/08/2024 7:58 AM EST [facility] Hemoglobin 12.9 11.5 - 16.0 g/dL LAB HEMETOLOGY METHOD 12/08/2024 7:58 AM EST [facility] Hematocrit 37.9 35.0 - 47.0 % LAB HEMETOLOGY METHOD 12/08/2024 7:58 AM [facility] MCV 90.2 79.0 - 98.0 FL LAB HEMETOLOGY METHOD 12/08/2024 7:58 AM [facility] MCH 30.7 27.0 - 32.0 pcg LAB HEMETOLOGY METHOD 12/08/2024 7:58 AM [facility] MCHC 34.0 32.0 - 37.0 g/dL LAB HEMETOLOGY METHOD 12/08/2024 7:58 AM [facility] RDW 11.9 11.0 - 15.0 % LAB HEMETOLOGY METHOD 12/08/2024 7:58 AM [facility] Platelets 355 130 - 400 K/mcL LAB HEMETOLOGY METHOD 12/08/2024 7:58 AM [facility] MPV 9.5 7.0 - 11.0 FL LAB HEMETOLOGY METHOD 12/08/2024 7:58 AM [facility] NRBC 0.0 <1.0 % LAB HEMETOLOGY METHOD 12/08/2024 7:58 AM [facility] NRBC Absolute 0.00 <0.10 K/mcL LAB HEMETOLOGY METHOD 12/08/2024 7:58 AM [facility] Neutrophils Relative 62.9 % LAB HEMETOLOGY METHOD 12/08/2024 7:58 AM [facility] Lymphocytes Relative 29.4 % LAB HEMETOLOGY METHOD 12/08/2024 7:58 AM [facility] Monocytes Relative 6.4 % LAB HEMETOLOGY METHOD 12/08/2024 7:58 AM [facility] Eosinophils Relative 0.9 % LAB HEMETOLOGY METHOD 12/08/2024 7:58 AM [facility] Basophils Relative 0.3 % LAB HEMETOLOGY METHOD 12/08/2024 7:58 AM EST [facility] Immature Granulocytes Relative 0.1 % LAB HEMETOLOGY METHOD 12/08/2024 7:58 AM EST [facility] Neutrophils Absolute 4.19 1.50 - 7.00 K/mcL LAB HEMETOLOGY METHOD 12/08/2024 7:58 AM EST [facility] Lymphocytes Absolute 1.96 1.00 - 5.00 K/mcL LAB HEMETOLOGY METHOD 12/08/2024 7:58 AM [facility] Monocytes Absolute 0.43 0.20 - 1.00 K/mcL LAB HEMETOLOGY METHOD 12/08/2024 7:58 AM [facility] Eosinophils Absolute 0.06 0.00 - 0.50 K/mcL LAB HEMETOLOGY METHOD 12/08/2024 7:58 AM EST [facility] Basophils Absolute 0.02 0.00 - 0.20 K/mcL LAB HEMETOLOGY METHOD 12/08/2024 7:58 AM [facility] Immature Granulocytes Absolute 0.01 0.00 - 0.03 K/mcL LAB HEMETOLOGY METHOD 12/08/2024 7:58 AM [facility] Blood Venous blood specimen / Unknown Venipuncture / Unknown 12/08/2024 7:27 AM EST 12/08/2024 7:53 AM EST us Theo Lock DO LAB BLOOD ORDERABLES Final Result [facility] [address] [place] [address], * Lipase (12/08/2024 7:27 AM EST) Lipase 28 13 - 75 unit/L LAB CHEMISTRY METHOD 12/08/2024 8:26 AM EST [facility] Blood Venous blood specimen / Unknown Venipuncture / Unknown 12/08/2024 7:27 AM EST 12/08/2024 7:53 AM EST Result [facility] Theo Lock DO LAB BLOOD ORDERABLES Final Result [facility] [address] [place] [address], * ECG-Annotated (12/08/2024) Result [facility] Provider Onbase MD ECG ORDERABLES Final Result * Hemoglobin A1c (12/04/2023) [facility] Hemoglobin A1C 6.1 <=6.5 % Blood Venous blood specimen / Unknown Result [facility] Provider LAB BLOOD ORDERABLES Gifty l Result * Diabetes Eye Exam (11/26/2023) [facility] Diabetes: Annual Retina Eye Exam abstracted Result [facility] Historical Provider HEALTH MAINTENANCE Final Result * Depression Screening (11/19/2023) [facility] Depression Screening abstracted Result [facility] Historical Provider HEALTH MAINTENANCE Final Result * Urine Albumin Creatinine Ratio (10/28/2022) [facility] Urine Albumin Creatinine Ratio abstracted Result [facility] Historical Provider HEALTH MAINTENANCE Final Result * (ABNORMAL) Lipid panel (10/28/2022) [facility] LDL/HDL Ratio 3 <=4 Triglycerides 95 <=150 mg/dL Cholesterol 226(A) <=200 mg/dL HDL 71 >=40 mg/dL LDL Cholesterol 136(A) <=100 mg/dL Blood Venous blood specimen / Unknown Result [facility] Historical Provider LAB BLOOD ORDERABLES Gifty l Result * RACHELLE SCREENING DIGITAL (04/05/2021 6:20 PM EDT) Anatomical Region Laterality Modality Mammography 04/05/2021 10:2 8 AM EDT Narrative 04/05/2021 6:20 PM EDT [facility] Diagnostic Imaging Department [address] [place] [address] Patient: ??SÁNCHEZSOL TONG ?/Age/Sex: 1965 - Unit#: ??[id number] ? Location/Status: ??SPDIMAM/REG CLI ? Mnemonic/Ordering Site: ??DIGSC/SPMAM Ordering Physician: ??ZHENG BECK-Anjel Rachelle Screening Digital - 04/05/21 - 3 History: Bilateral breast cancer screening. Technique: Bilateral digital mammography. Conventional CC and MLO projections with tomosynthesis MLO views and computer aided detection. Findings: Comparison: [facility] and outside mammography 06/17/2019 through 03/09/2014. Breast tissue is mostly fatty replaced (category a density) bilaterally (as calculated by [employer]). ??There are benign calcifications bilaterally. ?? There is no suspicious group of microcalcification, no suspicious mass, architectural distortion or suspicious asymmetry. Impression: ??No evidence of malignancy. BIRADS category 2, benign findings, 3342F 14892, [id number] Note: Patient information entered ??into a reminder system with a target due date for the next mammogram; PQRI II [id number] Dictating Physician: ??ROMARIO NAPIER MD Electronically Signed by: ??ROMARIO NAPIER MD Dic Date/Time: ??04/05/211816 Sign date/Time: ??04/05/211819 Procedure Note Romario Napier MD - 11/12/2022 [facility] Diagnostic Imaging Department [address] [place] [address] Patient: GONZALOSOLEDWIN Pitt./Age/Sex: 1965 - 56 - F Unit#: [id number] Location/Status: [facility] Mnemonic/Ordering Site: [facility] Ordering Physician: ZHENG BECK PA-C Rachelle Screening Digital - 04/05/21 - 1103 History: Bilateral breast cancer screening. Technique: Bilateral digital mammography. Conventional CC and MLOprojections with tomosynthesis MLO views and computer aided detection. Findings: Comparison: [facility] and outside mammography 06/17/2019through 03/09/2014. Breast tissue is mostly fatty replaced (category a density) bilaterally(as calculated by [employer]). There are benigncalcifications bilaterally. There is no suspicious group of microcalcification, nosuspicious mass, architectural distortion or suspicious asymmetry. Impression: No evidence of malignancy. BIRADS category 2, benign findings, 3342F [address]3835, [id number] Note: Patient information entered into a reminder system with a targetdue date for the next mammogram; [place] II [id number] Dictating Physician: ROMARIO NAPIRE MD Electronically Signed by: ROMARIO NAPIER MD Dic Date/Time: 04/05/211816 Sign date/Time: 04/05/211819 Zhneg VILLARREAL IMG BI PROCEDURES Final Result * [...] Most Recently Relevant to Health Maintenance Insurance [place] [address] Care Teams Telephone Technician Relationship Specialty Start Date End Date Zheng Beck PA [address] [facility] [address] [place], [place] [phone] PCP - General Primary Care 10/01/24
== END 2025-02-21 11:48 | disposition home or self-care (01) ==
LOC: HO.HOS 10:50
PROVIDERS: PCP Physician Assistant; Visit Provider Orthopaedic Surgery
DX: M25.512 Pain in left shoulder (principal)
CPT/HCPCS: 20610; 99213

== ENCOUNTER → 2025-02-21 10:50 | Outpatient (BNVA) | payer OTHER, SELFPAY | PROVIDERS: PCP Physician Assistant; Visit Provider Orthopaedic Surgery | DX: M25.512 Pain in left shoulder (principal); Z71.2 Person consulting for explanation of examination or test findings; Z98.890 Other specified postprocedural states | CPT/HCPCS: 20610; 99212; J0665; J1100; J2003 ==

== ENCOUNTER 2025-04-22 12:33 | Outpatient (AMB) | payer OTHER, SELFPAY ==
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
--- OUTSIDE RECORDS SUMMARY | 2025-04-22 12:57 | XMS_ITS | Clinical Summary ---
Author Organization 175 [facility] Address [address] [place] [address] Phone Care Team Providers Care Clinical Applications Manager Name Role Phone Zheng Beck Primary Care [...] week for 8 doses. 01/29/20 23 Active folic acid (FOLVITE) 1 mg tablet [...] BEDTIME 90 tablet 3 11/02/20 24 Active multivitamin tablet TAKE 1 TABLET BY MOUTH EVERY DAY 90 tablet 3 02/02/20 25 Active fluticasone propionate (FLONASE) 50 mcg/actuation nasal sprayIndicatio ns:Allergic rhinitis, unspecified SPRAY 2 SPRAYS INTO EACH NOSTRIL EVERY DAY 48 mL 3 04/07/20 25 Active fluticasone propionate (FLONASE) 50 mcg/actuation nasal spray Administer 2 sprays into each nostril 1 (one) time each day. 03/11/20 24 025 Discontinued tirzepatide, weight loss, (Zepbound) 5 mg/0.5 mL injection Inject 0.5 mL (5 mg total) under the skin every 7 (seven) days for 28 days. 2 mL 02/25/20 25 025 Active Problems Problem Noted Date Diagnosed Date DM type 2 (diabetes mellitus , type 2) ([facility] V24, [facility] V28) 09/03/2024 Overview (09/03/2024): 12/2018 No diabetes medication since bariatric surgery Rheumatoid factor positive 09/03/2024 Overview (09/03/2024): Rh factor = 1160 on 07/19/20 Class 1 obesity due to exces s calories with body mass index (BMI) of 33.0 to 33.9 in adult 09/03/2024 Rheumatoid arthritis ([facility] V24, [facility] V28) 04/22/2023 Undifferentiated inflammatory arthritis 09/07/20 20 Over [...] Encounters Date Type Department Care Team Description 02/28/2025 Telephone Bariatric Surgery - [address] [place] [address] Mark Schroeder MD from Last 3 Months Immunizations Name Administration [...] History Surgery Date Site/Laterality Comments SECTION PROCEDURE: [place] DELIVERY ONLY; COMMENT: times 4 OTHER SURGICAL HISTORY PROCEDURE: [place] LIG/TRNSXJ FLP TUBE ABDL/VAG APPR UNI/BI HYSTERECTOMY 2003 PROCEDURE: HISTORICAL HYSTERECTOMY; COMMENT: Supracervical, needs paps BREAST LUMPECTOMY PROCEDURE: ---- BREAST LUMP BIOPSY ----; COMMENT: cyst removed APPENDECTOMY 2001 PROCEDURE: HISTORICAL APPENDECTOMY HERNIA REPAIR 2001 PROCEDURE: HISTORICAL HERNIA REPAIR/ING SHOULDER ARTHROSCOPY 2013 Left PROCEDURE: [place] SURGICAL ARTHROSCOPY SHOULDER W/LSS&RESCJ ADS OTHER SURGICAL HISTORY 12/25/2018 PROCEDURE: HISTORY OTHER; COMMENT: gastrectomy LEG SURGERY 11/22/2015 Left PROCEDURE: HISTORICAL LEG SURGERY; COMMENT: varicose vein ablation/microphlebectomies BARIATRIC SURGERY 12/2018 PROCEDURE: [place] LAPS GSTRC RSTRICTIV PX LONGITUDINAL GASTRECTOMY Medical [...] type 2 (diabetes mellitus , type 2) ([facility] V24, [facility] V28) DX:DM type 2 (diabetes gee itus, type 2) ([facility]); COMMENT: 12/2018 No diabetes medication since bariatric surgery History of bariatric surgery 01/14/2019 DX: History of bariatric surgery; COMMENT: 12/2018 lap vertical sleeve Morbid obesity with BMI of 4 0.0-44.9, adult ([facility] V24, [facility] V28) 10/04/2014 DX:Morbid obesity wit h BMI of 40.0-44.9, adult ([facility]); COMMENT: 12/2018 post sleeve gastrectomy Rheumatoid factor positive DX:Rh eumatoid factor positive; COMMENT: Rh factor = 1160 on 07/19/20 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) Rheumatoid arthritis (CMS/ C V24, CMS/HCC V28) DX:Rheumatoid arthritis (HCC ) Family History Medical History Relation Name Comments [...] PM EDT Office Visit Bariatric Surgery - [place] [address] [place] [id number] Mark Schroeder MD [address] [place] [address] 06/10/2025 9:00 AM EDT Office Visit Internal Medicine - [place] [address] [place] [phone] Zheng Beck PA [address] [place] [address] Health Maintenance Due Date Last Done Comments [...] (2 of 2) 11/30/2024 10/05/2024 RSV Immunization Adult Patients (1 - Risk 60-74 years 1-dose series) [...] age to complete this topic Meningococcal B Vaccine Aged Out No l onger eligible based on patient's age to complete this topic RSV Immunization Patients Under 20 months Aged Out No longer eligible based on patient's age to complete this topic Varicella Vaccines Aged Out No longer eligible based on patient's age to complete this topic Procedures Procedure Name Priority Date/Time Associated Diagnosis Comments COMPREHENSIVE METABOLIC PANEL Routine 02/11/2025 1:44 PM EDT Drug therapy HEMOGLOBIN A1C Routine 12/04/2023 DIABETES EYE EXAM Routine 11/26/2023 DEPRESSION SCREENING [...] Comprehensive metabolic panel (02/11/2025 1:44 PM EDT) Sodium 137 133 - 145 mmol/L LAB CHEMISTRY METHOD 02/11/2025 6:[address] [facility] Potassium 4.0 3.5 - 5.5 mmol/L LAB CHEMISTRY METHOD 02/11/2025 6:[address] [facility] Chloride 101 96 - 110 mmol/L LAB CHEMISTRY METHOD 02/11/2025 6:[address] [facility] CO2 30 21 - 32 mmol/L LAB CHEMISTRY METHOD 02/11/2025 6:[address] [facility] Anion Gap 6 3 - 11 LAB CHEMISTRY METHOD 02/11/2025 6:[address] [facility] Glucose 107(H) 70 - 100 mg/dL LAB CHEMISTRY METHOD 02/11/2025 6:[address] [facility] BUN 12 5 - 25 mg/dL LAB CHEMISTRY METHOD 02/11/2025 6:[address] [facility] Creatinine 0.61 0.50 - 1.10 mg/dL LAB CHEMISTRY METHOD 02/11/2025 6:[address] [facility] eGFR 102 >=60 mL/min/1. 73m2 LAB CHEMISTRY METHOD 02/11/2025 6:[address] [facility] Comment:Calculation based on the??Chronic Kidney Disease Epidemiology Collaboration (CKD-EPI) equation refit??without adjustment for race. BUN/Creatinine Ratio 19.7 LAB CHEMISTRY METHOD 02/11/2025 6:[address] [facility] Calcium 9.9 8.5 - 10.5 mg/dL LAB CHEMISTRY METHOD 02/11/2025 6:07 PM EDT [facility] AST (SGOT) 23 10 - 42 unit/L LAB CHEMISTRY METHOD 02/11/2025 6:07 PM EDT [facility] ALT (SGPT) 24 10 - 60 unit/L LAB CHEMISTRY METHOD 02/11/2025 6:07 PM EDT [facility] Alkaline Phosphatase 100 42 - 121 unit/L LAB CHEMISTRY METHOD 02/11/2025 6:07 PM EDT [facility] Total Protein 8.3(H) 6.0 - 8.0 g/dL LAB CHEMISTRY METHOD 02/11/2025 6:07 PM EDT [facility] Albumin 3.9 3.2 - 5.0 g/dL LAB CHEMISTRY METHOD 02/11/2025 6:07 PM EDT [facility] Total Bilirubin 0.3 0.0 - 1.4 mg/dL LAB CHEMISTRY METHOD 02/11/2025 6:07 PM EDT [facility] Blood Venous blood specimen / Unknown Venipuncture / Unknown 02/11/2025 1:44 PM EDT 02/11/2025 1:44 PM EDT [facility] VILLARREAL LAB BLOOD ORDERABLES Final Result [facility] [address] [place] [address], * Hemoglobin A1c (12/04/2023) [facility] Hemoglobin A1C 6.1 <=6.5 % Blood Venous blood specimen / Unknown Historical Provider LAB BLOOD ORDERABLES Gifty l Result * Hm Diabetes Eye Exam (11/26/2023) Diabetes: Annual Retina Eye Exam abstracted Historical Provider HEALTH MAINTENANCE Final Result * Depression Screening (11/19/2023) Pathologist [facility] Depression Screening abstracted Historical Provider HEALTH MAINTENANCE Final Result * Urine Albumin Creatinine Ratio (10/28/2022) Pathologist [facility] Urine Albumin Creatinine Ratio abstracted Historical Provider HEALTH MAINTENANCE Final Result * (ABNORMAL) Lipid panel (10/28/2022) Pathologist [facility] LDL/HDL Ratio 3 <=4 Triglycerides 95 <=150 mg/dL Cholesterol 226(A) <=200 mg/dL HDL 71 >=40 mg/dL LDL Cholesterol 136(A) <=100 mg/dL Blood Venous blood specimen / Unknown Historical Provider LAB BLOOD ORDERABLES Gifty l Result * RACHELLE SCREENING DIGITAL (04/05/2021 6:20 PM EDT) Anatomical Region Laterality Modality Mammography 04/05/2021 10:2 8 AM EDT Narrative 04/05/2021 6:20 PM EDT [facility] Diagnostic Imaging Department [address] [place], [place] [id number] Patient: ??SOL SÁNCHEZ ?/Age/Sex: 1965 - - Unit#: ??[id number] ? Location/Status: ??SPDIMAM/REG CLI ? Mnemonic/Ordering Site: ??DIGSC/SPMAM Ordering Physician: ??ZHENG BECKAnjel Rachelle Screening Digital - 04/05/21 - 1103 History: Bilateral breast cancer screening. Technique: Bilateral digital mammography. Conventional CC and MLO projections with tomosynthesis MLO views and computer aided detection. Findings: Comparison: [facility] and outside mammography 06/17/2019 through 03/09/2014. Breast tissue is mostly fatty replaced (category a density) bilaterally (as calculated by [employer] software). ??There are benign calcifications bilaterally. ?? There is no suspicious group of microcalcification, no suspicious mass, architectural distortion or suspicious asymmetry. Impression: ??No evidence of malignancy. BIRADS category 2, benign findings, [id number], [id number] Note: Patient information entered ??into a reminder system with a target due date for the next mammogram; PQRI II [id number] Dictating Physician: ??ROMARIO NAPIER MD Electronically Signed by: ??ROMARIO NAPIER MD Dic Date/Time: ??04/05/211816 Sign date/Time: ??04/05/21 182 Procedure Note Romario Napier MD - 11/12/2022 [facility] Diagnostic Imaging Department [address] [place] [address] Patient: SOL SÁNCHEZ/Age/Sex: 1965 - 56 - F Unit#: [id number] Location/Status: SPDIMAM/REG CLI Mnemonic/Ordering Site: [facility] Ordering Physician: ZHENG BECK PA-C Rachelle Screening Digital - 04/05/21 - 1103 History: Bilateral breast cancer screening. Technique: Bilateral digital mammography. Conventional CC and MLOprojections with tomosynthesis MLO views and computer aided detection. Findings: Comparison: [facility] and outside mammography 06/17/2019through 03/09/2014. Breast tissue is mostly fatty replaced (category a density) bilaterally(as calculated by [employer] software). There are benigncalcifications bilaterally. There is no suspicious group of microcalcification, nosuspicious mass, architectural distortion or suspicious asymmetry. Impression: No evidence of malignancy. BIRADS category 2, benign findings, 3342F [id number], [id number] Note: Patient information entered into a reminder system with a targetdue date for the next mammogram; RI II [id number] Dictating Physician: ROMARIO NAPIER MD Electronically Signed by: ROMARIO NAPIER MD Dic Date/Time: 04/05/211816 Sign date/Time: 04/05/211819 Zheng VILLARREAL IMИван BI PROCEDURES Final Result * Hepatitis C Screening (09/07/2020) Pathologist [facility] Hepatitis C Screening abstracted Historical Provider HEALTH MAINTENANCE Final Result * Colonoscopy (12/12/2016) Pathologist [facility] Colonoscopy no interpretation , abstracted Anatomical Region Laterality Modality Other Historical Provider HEALTH MAINTENANCE Final Result * Pap Smear (11/10/2006) Pathologist [facility] Pap smear no interpretation , abstracted Historical Provider HEALTH MAINTENANCE Final Result from Last 3 Months or Most Recently Relevant to Health Maintenance Insurance [facility] Care Teams Clinical Applications Manager Relationship Specialty Start Date End Date Zheng Beck PA [address] [address] PCP - General Primary Care 10/01/24
== END 2025-04-22 13:58 | disposition home or self-care (01) ==
LOC: HO.HOS 12:34
PROVIDERS: PCP Physician Assistant; Visit Provider Orthopaedic Surgery
DX: M25.512 Pain in left shoulder (principal); Z98.890 Other specified postprocedural states
CPT/HCPCS: 99214

== ENCOUNTER → 2025-04-22 12:33 | Outpatient (BNVA) | payer OTHER, SELFPAY | PROVIDERS: PCP Physician Assistant; Visit Provider Orthopaedic Surgery | DX: Z98.890 Other specified postprocedural states (principal) | CPT/HCPCS: 99212 ==